=== PATIENT | male | born 1950 | race Caucasian/White ===

== ENCOUNTER 2019-07-29 11:32 | Outpatient (CLI) | payer MEDICARE, SELFPAY ==
--- NOTE | ~2019-07-29 | XR_ITS ---
XR foot LT min 3V DATE: 07/29/2019 12:04 INDICATION: Left first toe pain, swelling, redness TECHNIQUE: 4 views COMPARISON: None FINDINGS: There is localized punched-out erosion at the medial base of the proximal phalanx of the fi rst digit; consider gout. No fracture, dislocation, periosteal reaction or bone destruction is noted otherwise. Mild plantar calcaneal enthesopathy. Mild arterial calcification. IMPRESSION: Focal punched-out erosion at the medial base of proximal phalanx of first digit; consider gout Plantar calcaneal enthesopathy Reviewed, dictated and finalized at location A.
== END 2019-07-29 11:33 | disposition home or self-care (01) ==
PROVIDERS: PCP Family Medicine; Visit Provider Family Medicine
DX: M77.32 Calcaneal spur, left foot (principal); M79.89 Other specified soft tissue disorders
CPT/HCPCS: 73630

== ENCOUNTER 2019-07-30 09:34 | Outpatient (CLI) | payer MEDICARE, SELFPAY ==
[2019-07-30 10:26] LABS: Hematocrit 55.5 % (42.0-52.0); Hemoglobin 18.8 g/dL (14.0-18.0); Mean Corpuscular HGB Conc 33.9 g/dl (32-36); Mean Corpuscular Hemoglobin 31.4 pg (26-34); Mean Corpuscular Volume 92.7 fl (80-100); Mean Platelet Volume 9.8 fl (7.4-10.4); Platelet Count Result 274 k/mm3 (150-375); Red Blood Count 5.99 M/mm3 (4.6-6.20); Red Cell Distribution Width 13.3 % (11.5-14.5); White Blood Count 8.7 K/mm3 (4.5-10.0)
[2019-07-30 10:33] LABS: Hemoglobin A1C 6.2 % (<5.7)
[2019-07-30 10:34] LABS: Blood Urea Nitrogen 21 mg/dL (9-20); Calcium 9.5 mg/dL (8.4-10.2); Carbon Dioxide 27 mmol/L (22-30); Chloride 100 mmol/L (98-107); Cholesterol 140 mg/dL (0-200); Estimated Glomerular Filt Rate 51; Glucose 129 mg/dL (75-110); HDL Direct 50 mg/dL; Potassium 4.7 mmol/L (3.4-5.0); Sodium 135 mmol/L (137-145); Triglycerides 66 mg/dL (<150); Uric Acid 7.4 mg/dL (3.5-8.5)
[2019-07-30 10:45] LABS: LDL Cholesterol Direct 64 mg/dL
[2019-07-30 11:05] LABS: Prostate Specific Antigen 3.8 ng/mL (< OR = 4.0)
== END 2019-07-30 09:35 | disposition home or self-care (01) ==
PROVIDERS: PCP Family Medicine; Visit Provider Family Medicine
DX: R73.9 Hyperglycemia, unspecified (principal); M10.9 Gout, unspecified; Z12.5 Encounter for screening for malignant neoplasm of prostate; I10 Essential (primary) hypertension
CPT/HCPCS: 36415; 80048; 80061; 83036; 84153; 84550; 85027; G0103

== ENCOUNTER 2020-07-17 21:34 | Emergency (ER) | payer MEDICARE, SELFPAY ==
--- NOTE | ~2020-07-17 | CT_ITS ---
EXAMINATION: CT abdomen pelvis wo con EXAM DATE: 07/18/2020 02:26 INDICATION: Left flank pain. TECHNIQUE: Spiral CT of the abdomen and pelvis was performed without contrast. Axial, coronal and sag ittal images were reviewed. The dose-length product (DLP) for this examination was 244.87 mGy-cm. T he exposure was tailored according to patient size (auto mA exposure control), and iterative reconstr uction (ASIR) was used as additional dose reduction technique. Comparison is made to prior examinatio n from 11/22/2016. FINDINGS: There is no nephrolithiasis or hydronephrosis. Mild nonspecific bilateral perinephric fat s tranding and change. There is mild to moderate prostatomegaly. The bladder is unremarkable. There i s hepatic steatosis without suspicious focal lesion identified. Spleen, adrenal glands, pancreas are unremarkable. Gallbladder is unremarkable. No biliary obstruction. There is no retroperitoneal or pelvic lymphadenopathy. There is mild scattered arteriosclerotic disease. Small umbilical fat-conta ining hernia. The appendix is normal. The stomach and small bowel are unremarkable. There is expected amount of c olonic stool. No free intraperitoneal gas. The heart is normal in size. There are no pericardial or pleural effusions. The lung bases are unremarkable. There are no osteoblastic or osteolytic les ions identified. IMPRESSION: 1. No nephrolithiasis, hydronephrosis or acute intra-abdominal findings. 2. Mild prostatomegaly. 3. Hepatic steatosis. Reviewed, dictated and finalized at location A.
[2020-07-17 22:09] VITALS: BP 140/97; PULSE 118; RESP 20; TEMP 36.3; O2SAT 97
[2020-07-17 23:18] LABS: Add Urine Microscopic? YES; Appearance Urine Cloudy (Clear); Bilirubin Urine Negative (Negative); Blood Urine Negative (Negative); Color Urine Yellow (Yellow); Glucose Urine UA Negative (Negative); Ketones Urine Negative (Negative); Leukocyte Esterase Ur 2+ LEU/UL (Negative); Mucus Urine Rare /lpf; Nitrate Urine Negative (Negative); Protein Urine 1+ mg/dL (Negative); Specific Grav Ur 1.017 (1.001-1.035); WBC Urine >75 /hpf
[2020-07-18 00:03] LABS: Basophils Absolute Auto 0.1 K/mm3 (0.0-0.1); Basophils Percent Auto 0.3 % (0.2-1.2); Eosinophils Absolute Auto 0.1 K/mm3 (0-0.3); Eosinophils Percent Auto 0.4 % (0-4.4); Hemoglobin 18.5 g/dL (14.0-18.0); Immature Granulocyte Percent A 0.6 % (0-0.5); Lymphocytes Absolute Auto 1.52 K/mm3 (0.9-3.2); Lymphocytes Percent Auto 8.6 % (18.3-44.2); Mean Corpuscular HGB Conc 33.6 g/dl (32-36); Mean Corpuscular Hemoglobin 31.1 pg (26-34); Mean Corpuscular Volume 92.6 fl (80-100); Mean Platelet Volume 10.3 fl (7.4-10.4); Monocytes Absolute Auto 1.1 K/mm3 (0.1-0.6); Neutrophils Absolute Auto 14.8 K/mm3 (1.3-6.7); Neutrophils Percent Auto 84.1 % (45.5-73.1); Platelet Count Result 217 k/mm3 (150-375); Red Blood Count 5.94 M/mm3 (4.6-6.20); Red Cell Distribution Width 13.4 % (11.5-14.5); White Blood Count 17.6 K/mm3 (4.5-10.0)
[2020-07-18 00:14] LABS: Alanine Aminotransferase 46 U/L (4-50); Albumin Level 4.3 g/dL (3.5-5.1); Alkaline Phosphatase 81 U/L (38-126); Anion Gap 11 mmol/L (8-16); Aspartate Amino Transferase 32 U/L (17-59); Bilirubin,Total 1.5 mg/dL (0.2-1.3); Blood Urea Nitrogen 14 mg/dL (9-20); Calcium 10.4 mg/dL (8.4-10.2); Carbon Dioxide 25 mmol/L (22-30); Chloride 102 mmol/L (98-107); Estimated CRCL calculation 54 ml/min; Estimated Glomerular Filt Rate 60; Glucose 116 mg/dL (75-110); Lactic Acid Reflex 1.7 mmol/L (0.7-2.1); Potassium 4.3 mmol/L (3.4-5.0); Sodium 138 mmol/L (137-145)
[2020-07-18 01:13] VITALS: BP 134/100; PULSE 116; RESP 17; O2SAT 98
[2020-07-18 02:59] VITALS: BP 142/96; PULSE 99; RESP 19; O2SAT 99
--- NOTE | 2020-07-18 03:37 | ED.GENADULT ---
HPI - General Adult General Chief complaint: Urogenital-Male Stated complaint: urinary problems Time Seen by Provider: 07/18/20 01:57 History of Present Illness HPI narrative: Patient is a 69-year-old gentleman who presents the emergency department with chief complaint of urinary infection. Patient reports he was started on Levaquin 2 days ago and is noticed that he has had decreased urine output and difficulty starting his stream. Patient states that he has had a temperature up to 99 at home reports he has had no nausea no vomiting states that a little bit of flank discomfort on the left side. The patient states that he got concerned this evening and decided to come to the emergency department for evaluation. Related Data Home Medications Medication Instructions Recorded Confirmed febuxostat 40 mg tablet 40 mg PO DAILY 03/02/20 03/02/20 fluticasone propionate 50 1 spray INTRANASAL DAILY 03/02/20 03/02/20 mcg/actuation nasal spray,suspension indomethacin 25 mg capsule PO .prn cap 03/02/20 03/02/20 pantoprazole 40 mg tablet,delayed 40 mg PO DAILY tablet 03/02/20 03/02/20 release Allergies Allergy/AdvReac Type Severity Reaction Status Date / Time Penicillins Allergy Intermediate NAUSEA & Verified 07/18/20 01:10 RASH allopurinol Allergy Swelling Verified 07/18/20 01:10 Review of Systems Review of Systems: Narrative: A 10 system review of systems was completed on the patient and is negative except for what is stated in the HPI. Nursing and ancillary documentation was reviewed. PMFSH Social History Social History Smoking status: Former smoker (40 yrs ago) Exam Narrative: Exam Narrative: GENERAL: Well-appearing, well-nourished, and in no acute distress. HEAD: Normocephalic, atraumatic. EYES: PERRLA and EOMI. ENT: Nares clear, no rhinorrhea or epistaxis. Mucous membranes moist. NECK: Supple. CHEST: Clear to auscultation. No respiratory distress. HEART: Regular rate and rhythm. No murmur heard. Normal peripheral pulses. ABDOMEN: Soft, nontender, nondistended, normal active bowel sounds. EXTREMITIES: Normal range of motion. No edema. SKIN: Warm, dry, no rash. NEURO: No focal deficits. Alert and oriented x3. PSYCH: Normal mood and affect. Course Course Emergency Course: Patient is currently on his second day of Levaquin. He still does have evidence of urinary tract infection although does not show signs of severe sepsis he does have an elevated white blood cell count at 17,000. But currently shows no fever no hypotension negative lactate CT scan shows no acute findings. Since the patient has only been on the antibiotics for 2 days a urine culture was sent today to obtain sensitivities. Patient was instructed to continue the Levaquin if he starts having high fevers nausea vomiting inability to void the patient should return to the emergency department. Vital Signs Vital signs: Vital Signs Temperature 36.3 C L 07/17/20 22:09 Pulse Rate 118 H 07/17/20 22:09 Respiratory Rate 20 07/17/20 22:09 Blood Pressure 140/97 H 07/17/20 22:09 Pulse Oximetry 97 07/17/20 22:09 Temperature 36.3 C L 07/17/20 22:09 Pulse Rate 99 07/18/20 02:59 Respiratory Rate 19 07/18/20 02:59 Blood Pressure 142/96 H 07/18/20 02:59 Pulse Oximetry 99 07/18/20 02:59 Medical Decision Making Vital Signs Vital Signs: Vital Signs Temperature 36.3 C L 07/17/20 22:09 Pulse Rate 118 H 07/17/20 22:09 Respiratory Rate 20 07/17/20 22:09 Blood Pressure 140/97 H 07/17/20 22:09 Pulse Oximetry 97 07/17/20 22:09 Temperature 36.3 C L 07/17/20 22:09 Pulse Rate 99 07/18/20 02:59 Respiratory Rate 19 07/18/20 02:59 Blood Pressure 142/96 H 07/18/20 02:59 Pulse Oximetry 99 07/18/20 02:59 Lab Data Result diagrams: 07/17/20 23:52 07/17/20 23:52 Labs: Lab Results 07/17/20 07/17/20
[2020-07-18 03:58] VITALS: BP 119/99; PULSE 107; RESP 20; O2SAT 98
== END 2020-07-18 03:58 | disposition home or self-care (01) ==
PROVIDERS: Emergency Provider Emergency Medicine; PCP Internal Medicine
DX: N39.0 Urinary tract infection, site not specified (principal); Z87.891 Personal history of nicotine dependence
CPT/HCPCS: 36415; 74176; 80053; 81001; 83605; 85025; 87040; 87077; 87086; 99284

== ENCOUNTER 2020-09-29 02:41 | Emergency (ER) | payer MEDICARE, SELFPAY ==
--- NOTE | ~2020-09-29 | US_ITS ---
EXAMINATION: US abdomen limited EXAM DATE: 09/29/2020 07:47 INDICATION: Right upper quadrant pain. TECHNIQUE: Multiple grayscale and Doppler images of the abdomen right upper quadrant were obtained (b y a technologist who performed the scan) and subsequently reviewed. Correlation is made to CT abdomen earlier same date. FINDINGS: The pancreatic head and body are normal in appearance. The pancreatic tail is not visualized. There is echogenic liver parenchyma, hepatic steatosis. There are no focal liver lesions identified. Th ere is no evidence of intrahepatic biliary duct dilation. Portal venous flow was seen in the hepatop edal, normal direction and has normal Doppler waveform. No right-sided hydronephrosis. Common bile duct measures 6 mm, which is normal. The gallbladder wall is normal in thickness, with mo derate amount of distention. No sonographic evidence of pericholecystic fluid. There is no cholelit hiases. Technologist performing exam reports patient did not demonstrate sonographic Sears's sign. Please note that this sign is less reliable in patients who have received pain medication. IMPRESSION: 1. Moderately distended but otherwise unremarkable gallbladder. 2. Hepatic steatosis. Reviewed, dictated and finalized at location A.
--- NOTE | ~2020-09-29 | CT_ITS ---
EXAMINATION: CT abdomen pelvis w con EXAM DATE: 09/29/2020 04:44 INDICATION: Epigastric pain. TECHNIQUE: Spiral CT of the abdomen and pelvis was performed following intravenous injection of 100 m L Omnipaque 350. Axial, coronal and sagittal images of the abdomen and pelvis were reviewed. The do se-length product (DLP) for this examination was 522.88 mGy-cm. The exposure was tailored according to patient size (auto mA exposure control), and iterative reconstruction (ASIR) was used as additiona l dose reduction technique. Comparison is made to prior examination from 07/18/2020. FINDINGS: There is hepatic steatosis without suspicious focal lesion identified. Spleen, adrenal glan ds, pancreas are unremarkable. Gallbladder is moderately distended. No calcified cholelithiasis. Po rtal and splenic veins are patent. Kidneys enhance symmetrically. There is no hydronephrosis. Ther e is mild prostatomegaly. The bladder is unremarkable. There is no retroperitoneal or pelvic lympha denopathy. Small umbilical fat-containing hernia. There are no findings to suggest appendicitis. The stomach and small bowel are unremarkable. There is expected amount of colonic stool. No free intraperitoneal gas. A few scattered colonic diverticu la. The heart is normal in size. There are no pericardial or pleural effusions. Dependent basilar a telectasis. There are no osteoblastic or osteolytic lesions identified. IMPRESSION: 1. Moderately distended but otherwise unremarkable gallbladder. 2. Small umbilical hernia. 3. Hepatic steatosis. Reviewed, dictated and finalized at location A.
[2020-09-29 02:42] VITALS: BP 157/93; PULSE 98; RESP 16; TEMP 36.3; O2SAT 100
[2020-09-29 03:05] LABS: Basophils Absolute Auto 0.1 K/mm3 (0.0-0.1); Basophils Percent Auto 0.5 % (0.2-1.2); Eosinophils Percent Auto 0.2 % (0-4.4); Hematocrit 54.1 % (42.0-52.0); Hemoglobin 18.1 g/dL (14.0-18.0); Immature Granulocyte Absolute 0.06 K/mm3 (0.00-0.031); Immature Granulocyte Percent A 0.5 % (0-0.5); Mean Corpuscular HGB Conc 33.5 g/dl (32-36); Mean Corpuscular Volume 92.6 fl (80-100); Mean Platelet Volume 9.9 fl (7.4-10.4); Monocytes Absolute Auto 0.6 K/mm3 (0.1-0.6); Monocytes Percent Auto 4.5 % (2.6-8.5); Neutrophils Absolute Auto 10.6 K/mm3 (1.3-6.7); Neutrophils Percent Auto 81.3 % (45.5-73.1); Platelet Count Result 291 k/mm3 (150-375); Red Blood Count 5.84 M/mm3 (4.6-6.20); Red Cell Distribution Width 13.3 % (11.5-14.5); White Blood Count 13.1 K/mm3 (4.5-10.0)
[2020-09-29] MEDS: ONDANSETRON INJ 4 MG/2 ML VIAL IV PUSH ×2 (03:22→08:19)
[2020-09-29] MEDS: LACTATED RINGERS 1,000 ML 999 ML IV CONT (03:22)
--- NOTE | 2020-09-29 03:27 | ECG_ITS ---
Measurements Intervals [place] Rate: 83 P: 49 WA: 151 QRS: 3 QRSD: 92 T: 26 QT: 428 QTc: 504 Interpretive Statements SINUS RHYTHM WITH SINUS ARRHYTHMIA INCOMPLETE RIGHT BUNDLE BRANCH BLOCK PROLONGED QT INTERVAL ABNORMAL ECG Electronically Signed On 09-29-2020 6:54:25 CDT by Marc Payne D.O.
--- NOTE | 2020-09-29 03:28 | ED.ABDPAIN ---
HPI - Abdominal Pain General Chief Complaint: Nausea/Vomiting/Diarrhea <Rodriguez López MD - Last Filed: 09/29/20 06:49> Stated Complaint: n/v epigastric pain <Rodriguez López MD - Last Filed: 09/29/20 06:49> Time Seen by Provider: 09/29/20 03:20 <Rodriguez López MD - Last Filed: 09/29/20 06:49> Source: patient <Rodriguez López MD - Last Filed: 09/29/20 06:49> Mode of arrival: ambulatory <Rodriguez López MD - Last Filed: 09/29/20 06:49> Limitations: no limitations <Rodriguez López MD - Last Filed: 09/29/20 06:49> History of Present Illness HPI narrative: Patient is a 69-year-old male complaining of epigastric pain, 6 out of 10, nonradiating accompanied by nausea and vomiting that started last night. Patient denies any chest pain, shortness of breath, diarrhea, fever, chills or urinary symptoms. <Rodriguez López MD - Last Filed: 09/29/20 06:49> Related Data Home Medications: Home Medications Medication Instructions Recorded Confirmed febuxostat 40 mg tablet 40 mg PO DAILY 03/02/20 09/07/20 fluticasone propionate 50 1 spray INTRANASAL DAILY 03/02/20 09/07/20 mcg/actuation nasal spray,suspension indomethacin 25 mg capsule PO .prn cap 03/02/20 09/07/20 pantoprazole 40 mg tablet,delayed 40 mg PO DAILY tablet 03/02/20 09/07/20 release <Rodriguez López MD - Last Filed: 09/29/20 06:49> Allergies/Adverse Reactions: Allergies Allergy/AdvReac Type Severity Reaction Status Date / Time Penicillins Allergy Intermediate NAUSEA & Verified 09/29/20 03:21 RASH allopurinol Allergy Swelling Verified 09/29/20 03:21 <Rodriguez López MD - Last Filed: 09/29/20 06:49> Review of Systems Review of Systems: All systems reviewed & are unremarkable except as noted in HPI and below <Rodriguez López MD - Last Filed: 09/29/20 06:49> Constitutional: Constitutional: Denies body ache(s), Denies chills, Denies excessive sweating, Denies fatigue, Denies fever(s), Denies headache(s), Denies lethargy, Denies malaise, Denies weakness and Denies weight loss <Rodriguez López MD - Last Filed: 09/29/20 06:49> Eyes: Eyes: Denies blurry vision, Denies change in vision and Denies loss of vision <Rodriguez López MD - Last Filed: 09/29/20 06:49> ENT: Denies dizziness, Denies ear discharge, Denies headache(s), Denies lip swelling, Denies epistaxis, Denies nasal congestion, Denies neck pain, Denies throat swelling and Denies tongue swelling <Rodriguez López MD - Last Filed: 09/29/20 06:49> Cardiovascular: Cardiovascular: Denies chest pain, Denies chest pain at rest, Denies chest pain with activity, Denies diaphoresis, Denies rapid heart rate, Denies edema, Denies irregular heart rhythm, Denies lightheadedness, Denies palpitations, Denies dyspnea and Denies dyspnea on exertion <Rodriguez López MD - Last Filed: 09/29/20 06:49> Respiratory: Respiratory: Denies chest congestion, Denies cough, Denies hemoptysis, Denies dyspnea and Denies dyspnea on exertion <Rodriguez López MD - Last Filed: 09/29/20 06:49> Gastrointestinal: Gastrointestinal: Denies melena, Denies hematochezia, Denies diarrhea, Denies nausea, Denies vomiting and Denies hematemesis <Rodriguez López MD - Last Filed: 09/29/20 06:49> Musculoskeletal: Musculoskeletal: Denies abnormal gait, Denies deformity, Denies joint swelling, Denies limited range of motion, Denies neck pain and Denies numbness <Rodriguez López MD - Last Filed: 09/29/20 06:49> Neurologic: Denies Abnormal speech present, Denies abnormal gait, Denies confusion, Denies dizziness, Denies headache(s), Denies focal weakness, Denies loss of vision, Denies numbness, Denies Other visual disturbances, Denies Sensory deficit (Neuro) and Denies weakness <Rodriguez López MD - Last Filed: 09/29/20 06:49> Psychiatric: Psychiatric: Denies confusion, Denies depression, Denies auditory hallucinations, Denies homicidal ideation
[2020-09-29 03:43] LABS: Alanine Aminotransferase 32 U/L (4-50); Albumin Level 4.4 g/dL (3.5-5.1); Alkaline Phosphatase 68 U/L (38-126); Anion Gap 12 mmol/L (8-16); Aspartate Amino Transferase 26 U/L (17-59); Bilirubin,Total 1.4 mg/dL (0.2-1.3); Blood Urea Nitrogen 20 mg/dL (9-20); Calcium 9.9 mg/dL (8.4-10.2); Carbon Dioxide 24 mmol/L (22-30); Chloride 103 mmol/L (98-107); Estimated CRCL calculation 50 ml/min; Estimated Glomerular Filt Rate 55; Glucose 176 mg/dL (65-110); Lipase 81 U/L (23-300); Potassium 3.7 mmol/L (3.4-5.0); Sodium 139 mmol/L (137-145)
[2020-09-29] MEDS: PROMETHAZINE HCL 25 MG/ML AMPUL 12.5 MG IV PUSH (04:05)
[2020-09-29] MEDS: HYDROmorphone HCL INJ (*CRX) 1 MG/ML SYR 0.5 MG IV PUSH ×2 (04:05→05:52)
--- NOTE | 2020-09-29 04:13 | PC.NURSE ---
Pt to CT scan via stretcher at this time.
[2020-09-29 04:24] VITALS: BP 151/93; PULSE 90; RESP 18; O2SAT 98
[2020-09-29] MEDS: PANTOPRAZOLE SODIUM IV 40 MG VIAL IV PUSH (04:25)
[2020-09-29 05:09] VITALS: BP 151/74; PULSE 69; RESP 19; O2SAT 99
[2020-09-29 05:20] LABS: Add Urine Microscopic? YES; Appearance Urine Clear (Clear); Bilirubin Urine Negative (Negative); Blood Urine Negative (Negative); Color Urine Yellow (Yellow); Glucose Urine UA 1+ mg/dL (Negative); Ketones Urine 1+ mg/dL (Negative); Leukocyte Esterase Ur Negative LEU/UL (Negative); Nitrate Urine Negative (Negative); Protein Urine Negative (Negative); WBC Urine 0-3 /hpf
[2020-09-29 05:52] VITALS: BP 152/95; PULSE 90; RESP 18; O2SAT 98
[2020-09-29 07:16] VITALS: BP 139/87; PULSE 89; RESP 18; O2SAT 96
[2020-09-29 10:10] VITALS: BP 144/88; PULSE 90; RESP 16; O2SAT 98
== END 2020-09-29 10:10 | disposition home or self-care (01) ==
PROVIDERS: Emergency Provider Emergency Medicine; PCP Internal Medicine
DX: R10.13 Epigastric pain (principal); R11.2 Nausea with vomiting, unspecified; I10 Essential (primary) hypertension; Z87.891 Personal history of nicotine dependence
CPT/HCPCS: 36415; 74177; 76705; 80053; 81001; 83690; 85025; 93005; 96361; 96374; 96375; 96376; 99284; C9113; J1170; J2405; J2550; J7120; Q9967

== ENCOUNTER 2020-09-30 12:41 | Inpatient (IN) | payer MEDICARE, SELFPAY ==
[2020-09-30] VITALS (13 sets, daily range): BP systolic 121–160; BP diastolic 77–101; PULSE 85–130; RESP 16–22; TEMP 36.6–38.3; O2SAT 94–100; BMI 25.7
--- NOTE | ~2020-09-30 | CT_ITS ---
EXAMINATION: CT abdomen pelvis w con DATE: 09/30/2020 14:03 INDICATION: Right upper quadrant pain, nausea and vomiting TECHNIQUE: Computed tomography (CT) of the abdomen and pelvis was performed with 100 mL Omnipaque-350 intravenous contrast. Automated exposure control and iterative reconstruction technique were employe d. The dose-length product was 647.05 mGy-cm. COMPARISON: 09/29/2020 FINDINGS: Mild atelectasis at the bilateral lung bases. Heart size is normal. No pericardial or pleural effusio n. Diffuse hepatic steatosis with focal sparing along the gallbladder fossa. New inflammatory strandi ng around the gallbladder which remains mildly distended measuring 4.3 cm in maximal diameter. Alina us small foci of gas tracking within the wall of the gallbladder along with a few tiny foci of gas wi thin the fat near the neck of the gallbladder. Findings are concerning for acute emphysematous cholec ystitis. No intra or extrahepatic biliary ductal dilation. Spleen, bilateral adrenal glands and kidne ys are normal. Moderate fatty atrophy of the pancreas. Bowels including the appendix are normal. Blad lora is normal. No abscess or free intraperitoneal gas. No pathologically enlarged abdominal or pelvic lymphadenopathy. Very small fat-containing umbilical hernia. Severe lower lumbar spondylosis. IMPRESSION: 1. Acute emphysematous cholecystitis. Dr. Arredondo discussed these findings with Dr. Patel at 2:08 PM. Reviewed, dictated and finalized at location B. IMPRESSION: 1. Acute emphysematous cholecystitis. Dr. Arredondo discussed these findings wit h Dr. Patel at 2:08 PM.
[2020-09-30 13:15] LABS: Hematocrit 55.9 % (42.0-52.0); Hemoglobin 19.2 g/dL (14.0-18.0); Mean Corpuscular HGB Conc 34.3 g/dl (32-36); Mean Corpuscular Volume 90.3 fl (80-100); Mean Platelet Volume 10.2 fl (7.4-10.4); Platelet Count Result 285 k/mm3 (150-375); Red Blood Count 6.19 M/mm3 (4.6-6.20); Red Cell Distribution Width 13.3 % (11.5-14.5); White Blood Count 27.8 K/mm3 (4.5-10.0)
[2020-09-30 13:33] LABS: Alanine Aminotransferase 48 U/L (4-50); Albumin Level 4.7 g/dL (3.5-5.1); Alkaline Phosphatase 74 U/L (38-126); Anion Gap 10 mmol/L (8-16); Aspartate Amino Transferase 43 U/L (17-59); Bilirubin,Total 4.5 mg/dL (0.2-1.3); Blood Urea Nitrogen 17 mg/dL (9-20); Calcium 10.4 mg/dL (8.4-10.2); Carbon Dioxide 28 mmol/L (22-30); Chloride 96 mmol/L (98-107); Estimated CRCL calculation 54 ml/min; Estimated Glomerular Filt Rate 60; Glucose 156 mg/dL (65-110); Lipase 16 U/L (23-300); Potassium 4.2 mmol/L (3.4-5.0); Sodium 134 mmol/L (137-145)
--- NOTE | 2020-09-30 13:40 | ED.ABDPAIN ---
HPI - Abdominal Pain General Chief Complaint: Abdominal Pain <SIVA Abarca Last Filed: 09/30/20 14:50> Stated Complaint: Abd pain, vomiting <SIVA Abarca Last Filed: 09/30/20 14:50> Time Seen by Provider: 09/30/20 13:03 <SIVA Abarca Last Filed: 09/30/20 14:50> Source: patient <SIVA Abarca Last Filed: 09/30/20 14:50> Mode of arrival: ambulatory <SIVA Abarca Last Filed: 09/30/20 14:50> Limitations: no limitations <SIVA Abarca Last Filed: 09/30/20 14:50> History of Present Illness HPI narrative: This is a 61-year-old male that presents to the emergency department for right upper quadrant pain present x2 days. He was evaluated in the emergency department for this at onset of symptoms. He was told that his gallbladder was distended, but was able to be discharged with outpatient follow-up. He presents again today as his pain is worsening and he is continuing to have nausea and vomiting. Does report that he has had similar episodes of pain in the past and especially after eating fatty foods. Denies fever, dysuria, or diarrhea. <Adriana De La Rosa PA-C - Last Filed: 09/30/20 14:50> Related Data Home Medications: Home Medications Medication Instructions Recorded Confirmed febuxostat 40 mg tablet 40 mg PO DAILY 03/02/20 09/07/20 fluticasone propionate 50 1 spray INTRANASAL DAILY 03/02/20 09/07/20 mcg/actuation nasal spray,suspension indomethacin 25 mg capsule PO .prn cap 03/02/20 09/07/20 pantoprazole 40 mg tablet,delayed 40 mg PO DAILY tablet 03/02/20 09/07/20 release <SIVA Abarca Last Filed: 09/30/20 14:50> Allergies/Adverse Reactions: Allergies Allergy/AdvReac Type Severity Reaction Status Date / Time Penicillins Allergy Intermediate NAUSEA & Verified 09/30/20 13:47 RASH allopurinol Allergy Swelling Verified 09/30/20 13:47 <Adriana De La Rosa PA-C - Last Filed: 09/30/20 14:50> Review of Systems Review of Systems: CONSTITUTIONAL: Denies fever GASTROINTESTINAL: Reports abdominal pain, nausea, vomiting GENITOURINARY: Denies dysuria <Adriana De La Rosa PA-C - Last Filed: 09/30/20 14:50> All systems reviewed & are unremarkable except as noted in HPI and below <Adriana De La Rosa PA-C - Last Filed: 09/30/20 14:50> PMFSH Past Medical History Medical History: Medical History (Updated 09/30/20 @ 14:47 by Adriana De La Rosa PA-C) Chronic GERD Essential hypertension Gout Prediabetes <Adriana De La Rosa PA-C - Last Filed: 09/30/20 14:50> Social History Social History: Social History Smoking status: Former smoker Second hand tobacco smoke exposure: Yes Alcohol intake: current Drinks per week: 3 <Adriana De La Rosa PA-C - Last Filed: 09/30/20 14:50> Exam Narrative: GENERAL: Well-appearing, well-nourished, and in no acute distress. HEAD: Normocephalic, atraumatic. EYES: EOMI. CHEST: Clear to auscultation. No respiratory distress. No wheezes rales or rhonchi HEART: Regular rate and rhythm. No murmur heard. Normal peripheral pulses. ABDOMEN: Soft, mildly distended, normal active bowel sounds. Tender to palpation in the right upper quadrant, without guarding EXTREMITIES: Normal range of motion. No edema. SKIN: Warm, dry, no rash. NEURO: No focal deficits. Alert and oriented x3. PSYCH: Normal mood and affect <Adriana De La Rosa PA-C - Last Filed: 09/30/20 14:50> Course ESTHETICIAN FACIALIST/PA Physician Supervision For this encounter, I have reviewed the PA documentation, treatment plan and medical decision making: And I have had [id number] time with the patient. On exam the patient is tender palpation right upper quadrant right lower quadrant no tenderness left quadrant left lower quadrant no rebound or guarding : Discussed with Dr. Lundy presentation work-up at this time will call OR to likely take patient to surg
[2020-09-30] MEDS: SODIUM CHLORIDE 0.9% IV 1,000 ML 999 ML IV CONT (13:48)
[2020-09-30] MEDS: MORPHINE SULFATE (*CRX) 2 MG/ML INJ IV PUSH (13:48)
[2020-09-30] MEDS: ONDANSETRON INJ 4 MG/2 ML VIAL IV PUSH (13:48)
--- NOTE | 2020-09-30 14:03 | PC.NURSE ---
Pt to CT.
[2020-09-30 14:04] LABS: Add Urine Microscopic? YES; Appearance Urine Clear (Clear); Bilirubin Urine Negative (Negative); Blood Urine 1+ (Negative); Color Urine Amber (Yellow); Glucose Urine UA 1+ mg/dL (Negative); Ketones Urine Trace mg/dL (Negative); Leukocyte Esterase Ur Negative LEU/UL (Negative); Nitrate Urine Negative (Negative); Protein Urine 2+ mg/dL (Negative)
[2020-09-30 14:17] LABS: Specific Grav Ur 1.032 (1.001-1.035)
--- NOTE | 2020-09-30 15:12 | WPDANESEPPF ---
Anes - Initial Pre Proc Eval Procedure: Operation Date: 09/30/20 16:30 Proposed Procedures p Laparoscopic Cholecystectomy - Justin Lundy MD Date/Time: 09/30/20 15:12 Pre Op Diagnosis: emphysematous cholecystitis Patient Data Age: 69 Gender: M Height: 1.78 m Weight: 77 kg Last Vital Signs Temp 36.6 C 09/30/20 12:45 Pulse 130 H 09/30/20 12:45 Resp 16 09/30/20 12:45 BP 141/101 H 09/30/20 12:45 Pulse Ox 96 09/30/20 12:45 Allergies Allergy/AdvReac Type Severity Reaction Status Date / Time Penicillins Allergy Intermediate NAUSEA & Verified 09/30/20 13:47 RASH levofloxacin [From Levaquin] Allergy Unknown Swelling Verified 09/30/20 15:54 allopurinol Allergy Swelling Verified 09/30/20 13:47 Home Medications Medication Instructions Recorded Confirmed Type febuxostat 40 mg tablet 40 mg PO DAILY 03/02/20 09/07/20 History fluticasone propionate 50 1 spray INTRANASAL DAILY 03/02/20 09/07/20 History mcg/actuation nasal spray,suspension indomethacin 25 mg capsule PO .prn cap 03/02/20 09/07/20 History pantoprazole 40 mg tablet,delayed 40 mg PO DAILY tablet 03/02/20 09/07/20 History release trazodone 150 mg tablet 150 mg PO DAILY #90 tablet 07/29/20 09/07/20 Rx lisinopril 20 mg tablet 20 mg PO DAILY #90 tablet 08/12/20 09/07/20 Rx dicyclomine 10 mg PO TID PRN #10 cap 09/29/20 Rx ondansetron 4 mg PO Q6H PRN #14 tablet 09/29/20 Rx Laboratory Tests 09/30/20 09/30/20 09/30/20 13:06 13:06 13:39 WBC 27.8 K/mm3 H K/mm3 (4.5-10.0) RBC 6.19 M/mm3 M/mm3 (4.6-6.20) Hgb 19.2 g/dL H g/dL (14.0-18.0) Hct 55.9 % H % (42.0-52.0) MCV 90.3 fl fl (80-100) MCH 31.0 pg pg (26-34) MCHC 34.3 g/dl g/dl (32-36) RDW 13.3 % % (11.5-14.5) Plt Count 285 k/mm3 k/mm3 (150-375) MPV 10.2 fl fl (7.4-10.4) Immature Gran % (Auto) Not Reportable Neut % (Auto) Not Reportable Lymph % (Auto) Not Reportable [place] % (Auto) Not Reportable Eos % (Auto) Not Reportable Baso % (Auto) Not Reportable Lymph # (Auto) Not Reportable [place] # (Auto) Not Reportable Eos # (Auto) Not Reportable Baso # (Auto) Not Reportable Abs Immat Gran (auto) Not Reportable Absolute Neuts (auto) Not Reportable Absolute Nucleated RBC Not Reportable Nucleated RBC % Not Reportable Platelet Estimate Pending Sodium 134 mmol/L L mmol/L (137-145) Potassium 4.2 mmol/L mmol/L (3.4-5.0) Chloride 96 mmol/L L mmol/L (98-107) Carbon Dioxide 28 mmol/L mmol/L (22-30) Anion Gap 10 mmol/L mmol/L (8-16) BUN 17 mg/dL mg/dL (9-20) Creatinine 1.20 mg/dL mg/dL (0.7-1.3) Estim Creat Clear Calc 54 ml/min ml/min Estimated GFR 60 (59 - ) Glucose 156 mg/dL H mg/dL (65-110) Calcium 10.4 mg/dL H mg/dL (8.4-10.2) Total Bilirubin 4.5 mg/dL H mg/dL (0.2-1.3) AST 43 U/L U/L (17-59) ALT 48 U/L U/L (4-50) Alkaline Phosphatase 74 U/L U/L (38-126) Total Protein 8.0 g/dL g/dL (6.3-8.2) Albumin 4.7 g/dL g/dL (3.5-5.1) Lipase 16 U/L L U/L (23-300) Urine Color Ava (Yellow) Urine Appearance Clear (Clear) Urine pH 5.0 (5.0-9.0) Ur Specific [place] 1.032 (1.001-1.035) Urine Protein 2+ mg/dL H mg/dL (Negative) Urine Glucose (UA) 1+ mg/dL H mg/dL (Negative) Urine Ketones Trace mg/dL mg/dL (Negative) Ur Blood (Man) 1+ H (Negative) Urine Nitrate Negative (Negative) Urine Bilirubin Negative (Negative) Urine Urobilinogen 4.0 mg/dL H mg/dL (<2.0) Leuko
[2020-09-30] MEDS: metroNIDAZOLE 500 MG/ISO 100ML 500 MG/100 ML BAG 100 MG IVPB ×2 (15:20→20:55)
--- NOTE | 2020-09-30 15:24 | PC.NURSE ---
Spouse now believes pt had reaction to levaquin in the past and requested to stop infusion. OR made aware.
[2020-09-30 15:36] LABS: Lactic Acid Reflex 1.9 mmol/L (0.7-2.1)
[2020-09-30] MEDS: LACTATED RINGERS 1,000 ML 30 ML IV CONT ×2 (15:45→18:09)
[2020-09-30 15:50] LABS: Lymphocytes Absolute Manual 0.55 K/mm3 (1.1-4.5); Monocytes Absolute Manual 0.83 K/mm3 (0.1-0.90); Monocytes Percent Manual 3 % (3-9); Neutrophils Percent Manual 95 % (46-73); Total Cells Counted 100
[2020-09-30 15:51] LABS: Platelet Estimate Adequate (Adequate)
--- NOTE | 2020-09-30 16:11 | WPDHPUPDATE1 ---
History and Physical Update Update Date/Time: 09/30/20 16:11 History and Physical has been reviewed, including an updated exam of the patient. There are NO changes in the patient's condition. Risks, benefits, and alternatives have been discussed and questions answered. Patient agrees to proceed with procedure.
--- NOTE | 2020-09-30 16:11 | PM.IMHP ---
H&P: HPI History of Present Illness Date/Time: 09/30/20 16:11 Chief Complaint: Abdominal pain Narrative: The patient is a 69-year-old man who has been having abdominal pain for the last 3 days. The pain is primarily in the right upper quadrant and epigastrium. It is associated with nausea and vomiting This got worse yesterday and he went to the emergency room here last night. Although he had a 13,000 white count, his workup was unremarkable other than a distended gallbladder. There were no stones in the gallbladder. He had both CT of the abdomen and pelvis as well as a right upper quadrant ultrasound. He was discharge with plans for outpatient follow-up as he was feeling better in the emergency room. Unfortunately this did not last and in fact today he got considerably worse with severe pain nausea and vomiting. He came back to the emergency room. His white count on this occasion was 27,800. CT scan of the abdomen and pelvis was repeated and showed emphysematous acute cholecystitis with several foci of air in the wall of the gallbladder new from the imaging of yesterday. He felt feverish at home and most recent temperature here is 38.3. He had tachycardia in the 110s. Blood pressure is slightly elevated as well. He does have hyperbilirubinemia today with bilirubin of 4.5. He is taken to surgery now for laparoscopic cholecystectomy for acute emphysematous cholecystitis. Review of Systems Review of Systems: All systems reviewed & are unremarkable except as noted in HPI and below Constitutional: Constitutional: Reports as per HPI, Reports chills, Reports fever(s) and Reports poor appetite Cardiovascular: Cardiovascular: Denies chest pain, Denies diaphoresis, Denies dyspnea and Denies paroxysmal nocturnal dyspnea Respiratory: Respiratory: Denies chest congestion, Denies cough and Denies dyspnea Integumentary/Breasts: Skin/Breast: Denies lesions and Denies rash PMFSH Past Medical History Medical History (Updated 09/30/20 @ 16:41 by Justin Lundy MD) Acute emphysematous cholecystitis Chronic GERD Essential hypertension Gout Prediabetes Social History Social History Smoking status: Former smoker Second hand tobacco smoke exposure: Yes Alcohol intake: current Drinks per week: 3 Meds Home Medications and Allergies Home Medications Medication Instructions Recorded Confirmed Type febuxostat 40 mg tablet 40 mg PO DAILY 03/02/20 09/07/20 History fluticasone propionate 50 1 spray INTRANASAL DAILY 03/02/20 09/07/20 History mcg/actuation nasal spray,suspension indomethacin 25 mg capsule PO .prn cap 03/02/20 09/07/20 History pantoprazole 40 mg tablet,delayed 40 mg PO DAILY tablet 03/02/20 09/07/20 History release trazodone 150 mg tablet 150 mg PO DAILY #90 tablet 07/29/20 09/07/20 Rx lisinopril 20 mg tablet 20 mg PO DAILY #90 tablet 08/12/20 09/07/20 Rx dicyclomine 10 mg PO TID PRN #10 cap 09/29/20 Rx ondansetron 4 mg PO Q6H PRN #14 tablet 09/29/20 Rx Allergies Allergy/AdvReac Type Severity Reaction Status Date / Time Penicillins Allergy Intermediate NAUSEA & Verified 09/30/20 13:47 RASH levofloxacin [From Levaquin] Allergy Unknown Swelling Verified 09/30/20 15:54 allopurinol Allergy Swelling Verified 09/30/20 13:47 Vital Signs Vital Signs - 24 hr 09/30/20 12:45 09/30/20 15:18 09/30/20 15:51 Temperature 36.6 C 38.3 C H Pulse Rate 130 H 102 H 101 H Respiratory Rate 16 16 20 Blood Pressure 141/101 H 160/90 H 156/93 H Pulse Oximetry 96 100 98 Exam Const: General: cooperative, no acute distress, alert, awake, ill appearing and uncomfortable; No confusion Nutritional Appearance: average body habitus Orientation/consciousness: patient oriented x3 and No confusion HENMT: Head: normocephalic, atraumatic, no contusions and no scalp lesions Ears: external ears normal General nose exam: Normal external nose present Face and
[2020-09-30] MEDS: GENTAMICIN 80MG/SOD CHL 50 ML 80 MG/50 ML BAG 100 MG IVPB (16:21)
[2020-09-30] MEDS: BUPIVACAINE/EPINEPHRINE 0.25% 50 ML VIAL INFILTRATE (17:24)
--- NOTE | 2020-09-30 18:36 | W.PM.PROC2 ---
Procedure Note - Detailed Date of Procedure 09/30/20 Pre-op Diagnosis emphysematous cholecystitis Post-op Diagnosis same Procedure Performed Laparoscopic cholecystectomy Surgeon Justin Lundy MD Forepart Rounder Liza SARKAR Anesthesia general and local (0.5% Marcaine) Indications Patient presented to the emergency room with severe epigastric and right upper quadrant abdominal pain. He had a fever and white blood cell count was 27,800. CT scan showed emphysematous acute cholecystitis. He is taken to surgery emergently now for laparoscopic cholecystectomy. Findings Gallbladder was tensely distended with obvious acute inflammation and gangrenous changes. The back wall of the gallbladder was gangrenous and mushy. There was old blood in the gallbladder. I did not really notice any stones. Liver appeared normal. There was no biliary ductal dilatation. Description of Procedure Patient was taken to surgery and induced into general anesthesia. The abdomen is prepped and draped. Trocars were placed in the usual fashion using 0.5% Marcaine with epinephrine an applied Medical optical trocars. A 5 mm camera was used. The gallbladder was obviously acutely inflamed. The areas on the gallbladder that were not an angry reddish purple color were obviously gangrenous. The gallbladder was tensely distended. It could not be grasped but when trying to grasp it the garces would tear easily. Before the wall tore through full thickness, I decompressed the gallbladder with the suction. There was old blood in the gallbladder probably due to mucosal bleeding. Once the gallbladder was decompressed, it was retracted anterosuperiorly. There was severe acute inflammation throughout the gallbladder. I dissected the cystic duct and cystic artery using blunt and sharp dissection. The sharp dissection was primarily with the cautery. The cystic duct appeared gangrenous as well. It was handled gently. I dissected out the cystic artery as well. The dissection was exceedingly bloody due to the severe inflammation. There was edema as well consistent with the acute inflammation. I dissected the gallbladder off the liver at its lower 3rd. Critical view was achieved. I then securely clipped and divided the cystic duct and cystic artery. From there we continued the dissection of the gallbladder from its attachments to the liver. The upper half of the gallbladder was gangrenous and in the process of decomposing. It was dissected off the liver taking a little bit of the liver substance to try to remove the gangrenous wall of the gallbladder. Eventually the gallbladder was completely freed from the liver. It was placed in an Endo-Catch bag retrieved through the 10 11 epigastric trocar. The epigastric trocar was then replaced. The liver was retracted anterosuperiorly so that the gallbladder fossa was exposed. Repeated irrigation and suctioning as well as cautery to the gallbladder fossa was carried out. Eventually the gallbladder fossa was quite dry. I then continued the irrigation and suctioning. At least 3 L of irrigation was used and the right upper quadrant was thoroughly cleaned and suctioned. The gallbladder fossa was quite dry. There was no evidence of bleeding or bile leakage. We then passed a 19 [place] Island[place] Sergei drain through the right lower quadrant trocar up into the subhepatic space. Once in position, the trocar was removed and the drain was sutured securely to the skin with 2-0 silk. We then took 1 final look at the areas of dissection. All looked good. We evacuated CO2 and removed the trocar sleeves. The fascia at the epigastric trocar site was closed with 0 Vicryl suture. All skin wounds were closed with subcuticular running 4-0 Monocryl skin suture. The wounds were dressed with Exofin surgical adhesive. The patient was awakened and taken to recovery in good condition. Sponge and needle counts were correct x2. Estimated Blood Loss -100.0 Drains Yes (CAIT agustin
[2020-09-30] MEDS: MORPHINE SULFATE (*CRX) 4 MG/ML INJ IV PUSH (20:52)
[2020-09-30] MEDS: ENOXAPARIN 30 MG/0.3 ML SYRINGE SUB-Q (20:52)
--- NOTE | 2020-09-30 21:36 | ADMGEN ---
This patient, Robe Cordero, was admitted to Medical Room 249-01. Patient/family oriented to hospital policies and general routines including ID bracelet, bed and alarms, visiting hours, pain management, procedures, bathroom and other care routines, personal items, smoking policy, room service/diet, and visiting hours. Information on how to activate the Rapid Response Team has been discussed. Patient/Family are encouraged to report perceived risks to care and to ask questions if they do not understand what they are told or what they should do.
[2020-09-30] MEDS: LACTATED RINGERS 1,000 ML 125 ML IV CONT (22:15)
[2020-10-01] VITALS (7 sets, daily range): BP systolic 127–136; BP diastolic 73–88; PULSE 85–104; RESP 16; TEMP 36.4–37.9; O2SAT 94–97
[2020-10-01] MEDS: ACETAMINOPHEN 500 MG TABLET PO (00:07)
[2020-10-01] MEDS: FLUTICASONE PROPIONATE 0.05% NA SPR 16 GM BTL (*BKC) 1 SPRAY NASAL ×2 (01:18→08:31)
[2020-10-01] MEDS: HYDROcodone/acetaminophen (*CRX) 10-325 MG TABLET 1 TAB PO ×3 (04:58→18:38)
[2020-10-01] MEDS: metroNIDAZOLE 500 MG/ISO 100ML 500 MG/100 ML BAG 100 MG IVPB ×3 (04:59→22:22)
[2020-10-01 05:43] LABS: Hematocrit 48.1 % (42.0-52.0); Hemoglobin 16.3 g/dL (14.0-18.0); Mean Corpuscular HGB Conc 33.9 g/dl (32-36); Mean Corpuscular Hemoglobin 30.7 pg (26-34); Mean Corpuscular Volume 90.6 fl (80-100); Mean Platelet Volume 10.4 fl (7.4-10.4); Platelet Count Result 219 k/mm3 (150-375); Red Blood Count 5.31 M/mm3 (4.6-6.20); Red Cell Distribution Width 13.2 % (11.5-14.5); White Blood Count 19.1 K/mm3 (4.5-10.0)
[2020-10-01 05:51] LABS: Alanine Aminotransferase 60 U/L (4-50); Albumin Level 3.6 g/dL (3.5-5.1); Alkaline Phosphatase 55 U/L (38-126); Anion Gap 5 mmol/L (8-16); Aspartate Amino Transferase 63 U/L (17-59); Bilirubin,Total 2.6 mg/dL (0.2-1.3); Blood Urea Nitrogen 17 mg/dL (9-20); Calcium 8.7 mg/dL (8.4-10.2); Carbon Dioxide 25 mmol/L (22-30); Chloride 101 mmol/L (98-107); Estimated CRCL calculation 59 ml/min; Estimated Glomerular Filt Rate > 60; Glucose 121 mg/dL (65-110); Potassium 4.2 mmol/L (3.4-5.0); Sodium 131 mmol/L (137-145)
--- NOTE | 2020-10-01 07:11 | WPDANESPN ---
Anes - Prog Note Post-Op Date/Time: 10/01/20 07:11 Cardiovascular status: normal Respiratory status: normal Airway patency: baseline Mental status: baseline Post-Op hydration status: normal Vital Signs: Last Vital Signs Temp 98.9 F 10/01/20 06:00 Pulse 93 10/01/20 06:00 Resp 16 10/01/20 06:00 BP 136/86 10/01/20 06:00 Pulse Ox 95 10/01/20 06:00 Pain Score (VAS): 7 I/O: Intake & Output 09/30/20 09/30/20 10/01/20 15:59 23:59 07:59 Intake Total 1491 889 0777 Output Total 30 780 Balance 4292 730 3556 Laboratory Tests 10/01/20 05:22 10/01/20 05:22 09/30/20 09/30/20 09/30/20 13:06 13:06 13:39 WBC 27.8 H RBC 6.19 Hgb 19.2 H Hct 55.9 H MCV 90.3 MCH 31.0 MCHC 34.3 RDW 13.3 Plt Count 285 MPV 10.2 Immature Gran % (Auto) Not Reportable Neut % (Auto) Not Reportable Lymph % (Auto) Not Reportable [place] % (Auto) Not Reportable Eos % (Auto) Not Reportable Baso % (Auto) Not Reportable Lymph # (Auto) Not Reportable [place] # (Auto) Not Reportable Eos # (Auto) Not Reportable Baso # (Auto) Not Reportable Abs Immat Gran (auto) Not Reportable Absolute Neuts (auto) Not Reportable Absolute Nucleated RBC Not Reportable Total Counted 100 Neutrophils % (Manual) 95 H Lymphocytes % (Manual) 2.0 L Monocytes % (Manual) 3 Nucleated RBC % Not Reportable Abs Lymphs (Manual) 0.55 L Abs Monocytes (Manual) 0.83 Platelet Estimate Adequate Sodium 134 L Potassium 4.2 Chloride 96 L Carbon Dioxide 28 Anion Gap 10 BUN 17 Creatinine 1.20 Estim Creat Clear Calc 54 Estimated GFR 60 Glucose 156 H Lactic Acid Calcium 10.4 H Total Bilirubin 4.5 H AST 43 ALT 48 Alkaline Phosphatase 74 Total Protein 8.0 Albumin 4.7 Lipase 16 L Urine Color Ava Urine Appearance Clear Urine pH 5.0 Ur Specific [place] 1.032 Urine Protein 2+ H Urine Glucose (UA) 1+ H Urine Ketones Trace Ur Blood (Man) 1+ H Urine Nitrate Negative Urine Bilirubin Negative Urine Urobilinogen 4.0 H Leukocyte Esterase Rfl Negative 09/30/20 10/01/20 10/01/20 14:58 05:22 05:22 WBC 19.1 H RBC 5.31 Hgb 16.3 Hct 48.1 MCV 90.6 MCH 30.7 MCHC 33.9 RDW 13.2 Plt Count 219 MPV 10.4 Immature Gran % (Auto) Neut % (Auto) Lymph % (Auto) [place] % (Auto) Eos % (Auto) Baso % (Auto) Lymph # (Auto) [place] # (Auto) Eos # (Auto) Baso # (Auto) Abs Immat Gran (auto) Absolute Neuts (auto) Absolute Nucleated RBC Total Counted Neutrophils % (Manual) Lymphocytes % (Manual) Monocytes % (Manual) Nucleated RBC % Abs Lymphs (Manual) Abs Monocytes (Manual) Platelet Estimate Sodium 131 L Potassium 4.2 Chloride 101 Carbon Dioxide 25 Anion Gap 5 L BUN 17 Creatinine 1.10 Estim Creat Clear Calc 59 Estimated GFR > 60 Glucose 121 H Lactic Acid 1.9 Calcium 8.7 Total Bilirubin 2.6 H AST 63 H ALT 60 H Alkaline Phosphatase 55 Total Protein 7.0 Albumin 3.6 Lipase Urine Color Urine Appearance Urine pH Ur Specific [place] Urine Protein Urine Glucose (UA) Urine Ketones Ur Blood (Man) Urine Nitrate Urine Bilirubin Urine Urobilinogen Leukocyte Esterase Rfl Post-procedural complaints: none Patient Feedback: Patient satisfied with anesthetic care.
[2020-10-01] MEDS: LACTATED RINGERS 1,000 ML 125 ML IV CONT (08:27)
[2020-10-01] MEDS: PANTOPRAZOLE 40 MG TABLET PO (08:31)
[2020-10-01] MEDS: ENOXAPARIN 30 MG/0.3 ML SYRINGE SUB-Q ×2 (08:31→20:33)
[2020-10-01] MEDS: LORATADINE 5 MG TABLET PO (11:28)
[2020-10-01] MEDS: ARTIFICIAL TEARS OPHTH SOLN 15 ML BOTTLE 1 DROP EACH EYE ×2 (11:29→20:34)
--- NOTE | 2020-10-01 13:21 | PCRCNOTE ---
O2 SAT 94% ON ROOM AIR.
--- NOTE | 2020-10-01 16:30 | PM.PNGS ---
Progress Note: A&P Assessment and Plan (1) Acute emphysematous cholecystitis: Code(s): K81.0 - Acute cholecystitis Status: Acute Assessment and Plan: Doing well postop day 1. Continue IV antibiotics. If remains afebrile and tolerating oral intake, can possibly discharge tomorrow. Will ambulate today and advance diet. Continue CAIT drain for now. Subjective Subjective Date/Time Seen: 10/01/20 06:30 Post Op day: 1 Patient reports: feels better, pain is less, no flatus, no bowel movement and afebrile Exam Const: General: comfortable and no acute distress; No confusion Orientation/consciousness: patient oriented x3 and No confusion GI: Inspection: incision (All incisions dry and healing well, serosanguineous CAIT fluid) GI Palp: Yes Soft to palpation, Yes Tenderness to palpation present (GI), No Guarding due to palpation present (GI) and No Rebound tenderness present Auscultation: normal bowel sounds Neuro: General: patient oriented x3, no focal motor deficits and No confusion Extrem: General: no calf tenderness and no edema Psych: Affect: normal affect Insight: Good insight present (Psych) Judgement: Good judgement present (Psych) Objective Data Vital Signs Vital Signs: Vital Signs - 24 hr 09/30/20 18:09 09/30/20 18:25 09/30/20 18:40 Temperature 37.1 C Pulse Rate 89 85 87 Respiratory Rate 20 21 H 22 H Blood Pressure 121/82 154/99 H 144/97 H Pulse Oximetry 98 98 94 09/30/20 18:55 09/30/20 19:10 09/30/20 20:15 Temperature 37.3 C Pulse Rate 90 98 97 Respiratory Rate 18 16 16 Blood Pressure 149/98 H 148/98 H 126/77 Pulse Oximetry 100 97 97 09/30/20 20:30 09/30/20 21:00 09/30/20 21:23 Temperature 37.5 C 37.9 C H Pulse Rate 100 111 H 98 Respiratory Rate 16 17 16 Blood Pressure 131/79 141/89 H Pulse Oximetry 98 96 97 09/30/20 22:00 10/01/20 00:00 10/01/20 00:07 Temperature 37.9 C H 37.4 C 37.9 C H Pulse Rate 100 100 Respiratory Rate 16 16 Blood Pressure 141/89 H 133/88 Pulse Oximetry 95 97 10/01/20 06:00 10/01/20 10:00 10/01/20 14:00 Temperature 37.2 C 37.1 C 36.9 C Pulse Rate 93 104 H 89 Respiratory Rate 16 16 16 Blood Pressure 136/86 132/81 130/84 Pulse Oximetry 95 94 94 Intake/Output Intake/Output: Intake & Output 09/28/20 09/29/20 09/30/20 10/01/20 23:59 23:59 23:59 23:59 Intake Total 1760 3860 Output Total 30 780 Balance 1730 3080 Meds/Results Medications: Active Medications Generic Name Dose Route Start Last Admin Trade Name Freq PRN Reason Stop Dose Admin Acetaminophen 500 mg 09/30/20 19:47 10/01/20 00:07 Acetaminophen 500 Mg Tablet PO 500 mg Q6H PRN Administration Mild Pain (1-3) or Fever Hydrocodone Bitart/Acetaminophen 1 tab 09/30/20 19:47 Hydrocodone/Acetaminophen (*Crx) 5-325 Mg Tablet PO Q4H PRN Pain Rated 4-6 Hydrocodone Bitart/Acetaminophen 1 tab 09/30/20 19:47 10/01/20 11:28 Hydrocodone/Acetaminophen (*Crx) 10-325 Mg Tablet PO 1 tab Q4H PRN Administration Pain Rated 7-10 Artificial Tears 1 drop 10/01/20 10:13 10/01/20 11:29 Artificial Tears Ophth Soln 15 Ml Bottle EACH EYE 1 drop BID PRN Administration Itching Enoxaparin Sodium 30 mg 09/30/20 21:00 10/01/20 08:31 Enoxaparin 30 Mg/0.3 Ml Syringe SUB-Q 30 mg Q12HR ARABELLA Administration Fluticasone Propionate 1 spray 10/01/20 00:20 10/01/20 08:31 Fluticasone Propionate 0.05% Na Spr 16 Gm Btl (*Bkc) NASAL 1 spray QAM ARABELLA Administration Cefazolin Sodium 1 gm in 50 mls @ 100 mls/hr 09/30/20 22:00 10/01/20 15:10 Ancef 1 Gm/D5w 50 Ml Pm IVPB Infused Q8HR ARABELLA Infusion Lactated Ringer's 1,000 mls @ 80 mls/hr 09/30/20 19:47 10/01/20 08:27 Lr - Lactated Ringers Iv IV CONT 125 mls/hr .[id number] ARABELLA Administration Metronidazole 500 mg in 100 mls @ 100 mls/hr 09/30/20 22:00 10/01/20 15:13 Flagyl 500 Mg/Iso Soln 100 Ml IVPB 100 mls/hr Q8HR ARABELLA Administration Indometh
[2020-10-01] MEDS: LACTATED RINGERS 1,000 ML 80 ML IV CONT (18:34)
[2020-10-01] MEDS: traZODone HCL 50 MG TABLET 150 MG PO (20:33)
[2020-10-02 00:08] VITALS: BP 130/80; PULSE 85; RESP 16; TEMP 36.6; O2SAT 95
[2020-10-02 05:01] VITALS: BP 129/82; PULSE 89; RESP 16; TEMP 36.6; O2SAT 92
[2020-10-02] MEDS: metroNIDAZOLE 500 MG/ISO 100ML 500 MG/100 ML BAG 100 MG IVPB (05:38)
[2020-10-02] MEDS: HYDROcodone/acetaminophen (*CRX) 5-325 MG TABLET 1 TAB PO ×2 (05:41→11:16)
--- NOTE | 2020-10-02 07:49 | PM.DS ---
DS: Admitting Diagnosis Admitting Diagnosis Emphysematous acute cholecystitis sepsis gout essential hypertension DS: Discharge Diagnosis Discharge Diagnosis (1) Acute emphysematous cholecystitis: Code(s): K81.0 - Acute cholecystitis Status: Acute (2) Essential hypertension: Code(s): I10 - Essential (primary) hypertension Status: Chronic (3) Gout: Code(s): M10.9 - Gout, unspecified Status: Chronic DS: Summary Hospital Course Hospital Course: the patient is a 69-year-old man who developed abdominal pain about 4 days before admission. The pain was persistent and he went to the emergency room the day before admission. It seemed to be mostly right upper quadrant pain. He was evaluated in the emergency room. His pain improved with analgesics. Imaging of both CT of the abdomen as well as ultrasound of the gallbladder were negative other than a distended gallbladder. No stones were noted. Chemistries were unremarkable. The patient went home but his pain got worse again. It was even more severe. He came back to the hospital on 09/30. In the emergency room on this occasion, [place] [address] scan of the abdomen pelvis showed emphysematous acute cholecystitis. Dr. álvarez took the patient to surgery from the emergency room. He underwent emergent laparoscopic cholecystectomy. At surgery the gallbladder was gangrenous with blood in the gallbladder. It was severely inflamed quite consistent with the clinical presentation. Pathology is pending at the time of this dictation. After surgery the patient was continued on IV antibiotics with cefazolin and metronidazole. He was feeling better on postop day 1. And was started on liquids eventually being advanced to a low-fat diet. He tolerated this well. His CAIT drain showed only serous fluid on both postop days 1. And 2. He was comfortable on oral analgesics. He is discharged now on postop day 2. In much improved condition. His CAIT drain was removed prior to discharge. He will go home on oral antibiotics and follow up with Dr. álvarez in 2 weeks. Status at Discharge Overall status at discharge: patient is progressing back to baseline Time Spent with Patient Time attestation: Total time spent providing and/or coordinating discharge services: Exam Const: General: comfortable and no acute distress; No confusion Orientation/consciousness: patient oriented x3 and No confusion GI: Inspection: incision ( All incisions healing well, serous fluid in CAIT drain) GI Palp: Yes Soft to palpation, Yes Tenderness to palpation present (GI) ( incisional tenderness noted especially at CAIT drain site), No Guarding due to palpation present (GI) and No Rebound tenderness present Auscultation: normal bowel sounds Neuro: General: patient oriented x3, no focal motor deficits and No confusion Extrem: General: no calf tenderness and no edema Psych: Affect: normal affect Insight: Good insight present (Psych) Judgement: Good judgement present (Psych) DS: Data Data Completed and Pending Pending studies at discharge: Pending at discharge 09/30/20 17:01 Surgical [PTH] Routine Labs on day of discharge: Preliminary micro results at discharge 09/30/20 15:04 Blood Culture - Preliminary Blood 09/30/20 14:58 Blood Culture - Preliminary Blood Discharge Plan Discharge Attending physician on discharge: Justin Álvarez Consulting providers: Adriana De La Rosa Discharging Clinician: Justin Álvarez Anticipated Discharge Date/Time: 10/02/20 07:58 Patient Disposition: Home, Self-Care Activity: may shower, no straining and as tolerated Diet: low fat Wound Care Instructions: keep dressing dry, remove dressing to shower and change dressing daily Discharge Instructions: Ambulate 3-4 x per day and as tolerated. No lifting over 15-20lbs. May bathe or shower starting tomorrow. Stairs are OK. May drive a car in 3 days.
[2020-10-02 08:00] VITALS: BP 122/71; PULSE 96; RESP 18; TEMP 36.2; O2SAT 94
[2020-10-02] MEDS: FEBUXOSTAT 40 MG TABLET PO (09:02)
[2020-10-02] MEDS: LORATADINE 5 MG TABLET PO (09:02)
[2020-10-02] MEDS: lisinopriL 20 MG TABLET PO (09:02)
[2020-10-02] MEDS: PANTOPRAZOLE 40 MG TABLET PO (09:02)
[2020-10-02] MEDS: FLUTICASONE PROPIONATE 0.05% NA SPR 16 GM BTL (*BKC) 1 SPRAY NASAL (09:03)
[2020-10-02] MEDS: ENOXAPARIN 40 MG/0.4 ML SYRINGE SUB-Q (09:03)
[2020-10-02 09:04] LABS: Hematocrit 43.6 % (42.0-52.0); Hemoglobin 14.4 g/dL (14.0-18.0); Mean Corpuscular Hemoglobin 30.8 pg (26-34); Mean Corpuscular Volume 93.2 fl (80-100); Mean Platelet Volume 10.2 fl (7.4-10.4); Platelet Count Result 183 k/mm3 (150-375); Red Blood Count 4.68 M/mm3 (4.6-6.20); Red Cell Distribution Width 13.4 % (11.5-14.5); White Blood Count 9.1 K/mm3 (4.5-10.0)
[2020-10-02 09:27] LABS: Anion Gap 5 mmol/L (8-16); Blood Urea Nitrogen 14 mg/dL (9-20); Calcium 8.5 mg/dL (8.4-10.2); Carbon Dioxide 26 mmol/L (22-30); Chloride 101 mmol/L (98-107); Estimated CRCL calculation 59 ml/min; Estimated Glomerular Filt Rate > 60; Glucose 138 mg/dL (65-110); Potassium 3.2 mmol/L (3.4-5.0); Sodium 132 mmol/L (137-145)
== END 2020-10-02 12:30 | disposition home or self-care (01) | DRG 419 ==
LOC: ANHED 14:54 → ANH2MED 15:52
PROVIDERS: Admitting Provider Surgery; Emergency Provider Emergency Medicine; PCP Internal Medicine; Visit Provider Surgery
PROC: 0FT44ZZ Resection of Gallbladder, Percutaneous Endoscopic Approach (ICD-10-PCS; CPT 47562; principal; 2020-09-30 16:30)
DX: K81.0 Acute cholecystitis (principal); K82.A1 Gangrene of gallbladder in cholecystitis; K21.9 Gastro-esophageal reflux disease without esophagitis; I10 Essential (primary) hypertension; M10.9 Gout, unspecified; R73.03 Prediabetes; Z87.891 Personal history of nicotine dependence
CPT/HCPCS: 36415; 74177; 76705; 80048; 80053; 81001; 83605; 83690; 85025; 85027; 87040; 88304; 93005; 96361; 96365; 96366; 96367; 96372; 96374; 96375; 96376; 99284; 99285; A9270; C1713; C9113; G0378; J0330; J0690; J1100; J1170; J1580; J1650; J1956; J2250; J2270; J2405; J2550; J2704; J2710; J3010; J7030; J7120; Q9967

== ENCOUNTER 2021-01-18 14:52 | Emergency (ER) | payer MEDICARE, SELFPAY ==
--- NOTE | 2021-01-18 14:59 | ED.URI ---
HPI - URI/Sore Throat General Chief Complaint: Upper Respiratory Infection Stated Complaint: Sinus Time Seen by Provider: 01/18/21 14:59 Source: patient, RN notes reviewed and old records reviewed Mode of arrival: ambulatory Limitations: no limitations History of Present Illness HPI Narrative: 70 yo male presents to the [facility] with C/O nasal congestion, cough since Monday, 2 days ago. States he is try taking Mucinex which has helped a great deal. Patient states that he is truly frustrated with his doctor today, was on hold 3 times for long periods of time. Denies chest pain or abdominal pain. No fevers. Reports that he is fully vaccinated. MD elicited complaint: nasal congestion Related Data Home Medications Medication Instructions Recorded Confirmed trazodone 150 mg PO HS 09/30/20 01/18/21 Allergies Allergy/AdvReac Type Severity Reaction Status Date / Time Penicillins Allergy Intermediate NAUSEA & Verified 01/18/21 15:09 RASH levofloxacin [From Levaquin] Allergy Unknown Swelling Verified 01/18/21 15:09 allopurinol Allergy Swelling Verified 01/18/21 15:09 Review of Systems Review of Systems: All systems reviewed & are unremarkable except as noted in HPI and below Constitutional: Constitutional: Reports no additional constitutional complaints, Denies chills and Denies fever(s) Eyes: Eyes: Reports no additional eye complaints, Denies change in vision and Denies photophobia ENT: Reports as per HPI, Reports nasal congestion and Denies sore throat Cardiovascular: Cardiovascular: Reports no additional cardiovascular complaints Respiratory: Respiratory: Reports no additional respiratory complaints Gastrointestinal: Gastrointestinal: Reports no additional gastrointestinal complaints Musculoskeletal: Musculoskeletal: Reports no additional musculoskeletal complaints Integumentary/Breasts: Skin/Breast: Reports system reviewed and no additional complaints, except as docu Neurologic: Reports system reviewed and no additional complaints, except as documented Psychiatric: Psychiatric: Reports no additional psychiatric complaints Allergic/Immunologic: Allergic/Immunologic: Reports no additional allergic/immunologic complaints [facility] Past Medical History Medical History Acute emphysematous cholecystitis Chronic GERD Essential hypertension Gout Prediabetes Surgical History Surgical History Hx laparoscopic cholecystectomy 09/30/20 Social History Social History (Reviewed 01/18/21 @ 15:02 by Barbra Valencia Smoking packs per day: 1 Smoking cigarettes per day: 20.0 Tobacco type: pipe Second hand tobacco smoke exposure: Yes Alcohol intake: current Drinks per week: 3 Substance use: never Substance use type: does not use Spiritual care concerns: No Comments At the time of my signature, I reviewed and agree with the nursing past medical, surgical, social, and family history. There is no relevant family history pertinent to the patient complaint. Exam Const: General: healthy appearing, no acute distress and alert Nutritional Appearance: well nourished Orientation/consciousness: patient oriented x3 Limitations: no limitations HENMT: Head: normal to inspection Ears: external ears normal, TM's normal bilaterally and EAC's normal Eyes: Pupils: Equal, round and reactive pupils present Neck: Neck: normal visual inspection, no lymphadenopathy and no meningeal signs Chest: Chest palpation & inspection: normal inspection of the chest Resp: Effort & Inspection: normal respiratory effort Auscultation: clear to auscultation bilaterally Cardio: Rate: regular rate Rhythm: regular rhythm GI: GI Palp: Yes Soft to palpation and No Tenderness to palpation present (GI) Back/Spine/Pelvis: Back: no CVA tenderness Skin: General skin exam: normal color Rashes: no rashes Wounds: no wounds N
[2021-01-18 15:02] VITALS: BP 153/104; PULSE 89; RESP 18; TEMP 36.4; O2SAT 99
== END 2021-01-18 15:55 | disposition home or self-care (01) ==
PROVIDERS: Emergency Provider Nurse Practitioner; PCP Internal Medicine
DX: R09.82 Postnasal drip (principal); I10 Essential (primary) hypertension; F17.210 Nicotine dependence, cigarettes, uncomplicated
CPT/HCPCS: 87804; 99213; G0463

== ENCOUNTER → 2021-01-19 01:10 | Outpatient (CLI) | payer MEDICARE, SELFPAY ==
[2021-01-19 13:28] LABS: Influenza Control Positive
[2021-01-20 02:02] LABS: SARS-CoV-2 RNA PCR Negative
== END ==
PROVIDERS: PCP Internal Medicine; Visit Provider Internal Medicine
DX: R09.89 Other specified symptoms and signs involving the circulatory and respiratory systems (principal); Z20.822 Contact with and (suspected) exposure to COVID-19
CPT/HCPCS: 87804; C9803; U0003; U0005

== ENCOUNTER 2021-02-17 16:25 | Emergency (ER) | payer MEDICARE, SELFPAY ==
[2021-02-17 16:58] VITALS: BP 138/114; PULSE 117; RESP 16; TEMP 37.1; O2SAT 98
--- NOTE | 2021-02-17 18:15 | ED.URI ---
HPI - URI/Sore Throat General Chief Complaint: Upper Respiratory Infection Stated Complaint: sinus infection Time Seen by Provider: 02/17/21 17:57 Source: patient and RN notes reviewed Mode of arrival: ambulatory Limitations: no limitations History of Present Illness HPI Narrative: Patient presents today complaining of nasal congestion, itchy and watery eyes, left ear clogging, sinus pressure. This has been present for at least a couple of weeks. He just finished a 10-day course of cefdinir 3 to 4 days ago that was prescribed by his PCPs office. He was also told to take Mucinex. States the cefdinir improved his symptoms, but they did not resolve completely. MD elicited complaint: nasal congestion and sinus pain Related Data Allergies Allergy/AdvReac Type Severity Reaction Status Date / Time Penicillins Allergy Intermediate NAUSEA & Verified 02/17/21 17:18 RASH levofloxacin [From Levaquin] Allergy Unknown Swelling Verified 02/17/21 17:18 allopurinol Allergy Swelling Verified 02/17/21 17:18 Review of Systems Review of Systems: CONSTITUTIONAL: Denies body aches, fever, chills, or sweats. EYES: Denies visual changes, redness, or discharge.+ Itchy and watery eyes ENT: Denies rhinorrhea, sore throat.+ Congestion, sinus pressure, left ear clogging CARDIOVASCULAR: Denies chest pain, palpitations, or edema. RESPIRATORY: Denies cough or dyspnea. GASTROINTESTINAL: Denies abdominal pain, nausea, vomiting, or diarrhea. GENITOURINARY: Denies dysuria or hematuria. SKIN: Denies rash, itching, or wounds. MUSCULOSKELETAL: Denies back pain, joint pain, or myalgia. NEUROLOGIC: Denies headache, numbness, tingling, or weakness. PSYCH: Denies depression or anxiety. [facility] Past Medical History Medical History Acute emphysematous cholecystitis Chronic GERD Essential hypertension Gout Prediabetes Surgical History Surgical History Hx laparoscopic cholecystectomy 09/30/20 Social History Social History Smoking packs per day: 1 Smoking cigarettes per day: 20.0 Years smoked: 2 Smoking pack-years: 2.00 Smoking status: Former smoker Tobacco type: pipe Second hand tobacco smoke exposure: Yes Smoking end date: 02/15/88 Alcohol intake: current Drinks per week: 3 Substance use: never Substance use type: does not use Spiritual care concerns: No Comments At time of signature, I have reviewed and agree with nursing past medical, surgical, social and family history unless otherwise noted. Please see nursing chart for further information. There is no relevant family history pertinent to the presenting complaint Exam Narrative: GENERAL: Well-appearing, well-nourished, and in no acute distress. HEAD: Normocephalic, atraumatic. EYES: EOMI. PERRL. Injected scleras bilaterally. ENT: Mucous membranes pink and moist. Nares congested. Bilateral erythematous and swollen nasal turbinates with purulent discharge on the left. No rhinorrhea. TMs normal bilaterally. Throat normal with purulent postnasal drainage. Uvula midline. NECK: Normal AROM. Supple. No lymphadenopathy. CHEST: No respiratory distress. Clear to auscultation. HEART: Regular rate and rhythm. No murmur appreciated. Normal peripheral pulses. EXTREMITIES: Normal range of motion. No edema. SKIN: Warm, dry, no rash. Capillary refill normal. Normal skin turgor. NEURO: No focal deficits. Alert and oriented x3. Gait steady. PSYCH: Normal affect. No signs of depression or anxiety. Course Course Level of Care: Express Care Visit Vital Signs Vital signs: Vital Signs Temperature 98.7 F 02/17/21 16:58 Pulse Rate 117 H 02/17/21 16:58 Respiratory Rate 16 02/17/21 16:58 Blood Pressure 138/114 H 02/17/21 16:58 Pulse Oximetry 98 02/17/21 16:58 Temperature 98.7 F
== END 2021-02-17 18:20 | disposition home or self-care (01) ==
PROVIDERS: Emergency Provider Nurse Practitioner; PCP Internal Medicine
DX: J32.9 Chronic sinusitis, unspecified (principal); Z87.891 Personal history of nicotine dependence; K21.9 Gastro-esophageal reflux disease without esophagitis; I10 Essential (primary) hypertension; M10.9 Gout, unspecified; R73.03 Prediabetes
CPT/HCPCS: 99213; G0463

== ENCOUNTER 2021-05-20 11:32 | Emergency (ER) | payer MEDICARE, SELFPAY ==
[2021-05-20 11:37] VITALS: BP 136/101; PULSE 112; RESP 18; TEMP 36.8; O2SAT 99
--- NOTE | 2021-05-20 11:37 | ED.EAR ---
HPI - Ear Problem General Chief complaint: Ear Stated complaint: ear pain Time Seen by Provider: 05/20/21 11:40 Source: patient, RN notes reviewed and old records reviewed Mode of arrival: ambulatory Limitations: no limitations History of Present Illness HPI Narrative: 70-year-old male presents to the [facility] with complaints of left ear pain. States over the last few days his ears have been increasingly itchy and have been using Q-tips a little more aggressively than normal. States he woke up with the ear pain. No treatment prior to arrival. MD Complaint: ear pain Location: left ear Related Data Home Medications Medication Instructions Recorded Confirmed tadalafil 20 mg tablet 20 mg PO DAILY PRN tablet 03/24/21 05/20/21 pantoprazole 40 mg PO DAILY 05/20/21 05/20/21 Allergies Allergy/AdvReac Type Severity Reaction Status Date / Time Penicillins Allergy Intermediate NAUSEA & Verified 05/20/21 11:45 RASH levofloxacin [From Levaquin] Allergy Unknown Swelling Verified 05/20/21 11:45 allopurinol Allergy Swelling Verified 05/20/21 11:45 Review of Systems Review of Systems: All systems reviewed & are unremarkable except as noted in HPI and below Constitutional: Constitutional: Reports no additional constitutional complaints, Denies chills and Denies fever(s) Eyes: Eyes: Reports no additional eye complaints ENT: Reports as per HPI, Denies change in voice, Denies dental pain, Denies vertigo, Denies dizziness and Denies throat swelling Comments: Ear pain left Cardiovascular: Cardiovascular: Reports no additional cardiovascular complaints, Denies chest pain and Denies dyspnea Respiratory: Respiratory: Reports no additional respiratory complaints, Denies cough and Denies dyspnea Gastrointestinal: Gastrointestinal: Reports no additional gastrointestinal complaints, Denies abdominal pain, Denies nausea and Denies vomiting Musculoskeletal: Musculoskeletal: Reports no additional musculoskeletal complaints Integumentary/Breasts: Skin/Breast: Reports system reviewed and no additional complaints, except as docu Neurologic: Reports system reviewed and no additional complaints, except as documented, Denies vertigo and Denies dizziness Psychiatric: Psychiatric: Reports no additional psychiatric complaints Allergic/Immunologic: Allergic/Immunologic: Reports no additional allergic/immunologic complaints and Denies throat swelling PMFSH Past Medical History Medical History Acute emphysematous cholecystitis Chronic GERD Essential hypertension Gout Prediabetes Surgical History Surgical History Hx laparoscopic cholecystectomy 09/30/20 Social History Social History Smoking packs per day: 1 Smoking cigarettes per day: 20.0 Years smoked: 2 Smoking pack-years: 2.00 Smoking status: Former smoker Tobacco type: pipe Second hand tobacco smoke exposure: Yes Smoking end date: 02/15/88 Alcohol intake: current Drinks per week: 3 Substance use: never Substance use type: does not use Spiritual care concerns: No Comments At the time of my signature, I reviewed and agree with the nursing past medical, surgical, social, and family history. There is no relevant family history pertinent to the patient complaint. Exam Const: General: healthy appearing and no acute distress Nutritional Appearance: well nourished Orientation/consciousness: patient oriented x3 Limitations: no limitations HENMT: Head: normal to inspection Ears: external ears normal, TM's normal bilaterally and Abnormal EAC present erythema on the left and EAC tenderness on the left General nose exam: Normal external nose present and Normal nasal mucous membranes and turbinates present Face and sinus: normal facial exam Mouth: Yes Normal oral and palatal mucosa present Throat
== END 2021-05-20 11:50 | disposition home or self-care (01) ==
PROVIDERS: Emergency Provider Nurse Practitioner; PCP Internal Medicine
DX: H66.92 Otitis media, unspecified, left ear (principal); Z87.891 Personal history of nicotine dependence; K21.9 Gastro-esophageal reflux disease without esophagitis; I10 Essential (primary) hypertension; M10.9 Gout, unspecified; R73.03 Prediabetes
CPT/HCPCS: 99213; G0463

== ENCOUNTER 2021-10-02 14:36 | Emergency (ER) | payer MEDICARE, SELFPAY ==
[2021-10-02 14:53] VITALS: BP 144/101; PULSE 102; RESP 16; TEMP 36.7; O2SAT 99
--- NOTE | 2021-10-02 15:17 | ED.MALEGU ---
HPI - Male Genitourinary General Chief complaint: Urogenital-Male Stated complaint: UTI Time Seen by Provider: 10/02/21 15:18 History of Present Illness HPI Narrative: Robe Cordero is a 70 yo male with a PMH of uti, seasonal allergies, GERD, hypertension, [facility] has he has had a history of UTI. He has no dysuria no burning no problem emptying bladder but because of the color of his urine he was concerned that he might be having or developing a UTI Related Data Home Medications Medication Instructions Recorded Confirmed tadalafil 20 mg tablet 20 mg PO DAILY PRN Erectile 03/24/21 10/02/21 Dysfunction Allergies Allergy/AdvReac Type Severity Reaction Status Date / Time Penicillins Allergy Intermediate NAUSEA & Verified 10/02/21 14:48 RASH levofloxacin [From Levaquin] Allergy Unknown Swelling Verified 10/02/21 14:48 allopurinol Allergy Swelling Verified 10/02/21 14:48 Review of Systems Review of Systems: CONSTITUTIONAL: Denies fever, chills, sweats. EYES: Denies visual changes, redness, discharge. ENT: Denies rhinorrhea, congestion, sore throat, otalgia. CARDIOVASCULAR: Denies chest pain, palpitations, edema. RESPIRATORY: Denies dyspnea, wheezing, cough GASTROINTESTINAL: Denies abdominal pain, nausea, vomiting, diarrhea. GENITOURINARY: Denies dysuria, hematuria, abnormal discharge SKIN: Denies rash or itching. NEUROLOGIC: Denies numbness, or focal weakness. PSYCHIATRIC: Denies anxiety or depression. Dark yellow urine and question about UTI [facility] Past Medical History Medical History Acute emphysematous cholecystitis Chronic GERD Essential hypertension Gout Prediabetes Surgical History Surgical History Hx laparoscopic cholecystectomy 09/30/20 Social History Social History Smoking packs per day: 1 Smoking cigarettes per day: 20.0 Years smoked: 2 Smoking pack-years: 2.00 Smoking status: Former smoker Tobacco type: pipe Second hand tobacco smoke exposure: Yes Smoking end date: 02/15/88 Alcohol intake: current Drinks per week: 3 Substance use: never Substance use type: does not use Spiritual care concerns: No Comments At time of signature, I agree with nursing past medical, surgical, social and family history. There is no relevant family history pertinent to the presenting complaint. Exam Narrative: GENERAL: This is a well-nourished, well-developed patient, in mild distress. HEAD: normocephalic, atraumatic. EYES: Sclera clear/white. Vision is grossly intact. EARS: External ears normal, auditory canals clear and without drainage, TMs normal without perforation. Hearing grossly intact. NOSE: External nose normal without nasal discharge, nares without redness, no rhinorrhea. THROAT: Mucous membranes moist, NECK: Neck supple, non-tender CARDIOVASCULAR: Regular rate and rhythm without murmurs, gallops, or rubs. RESPIRATORY: Clear to auscultation. Breath sounds equal bilaterally. No wheezes, rales, or rhonchi. GASTROINTESTINAL: Not done SKIN: warm, intact with no suspicious lesions or rash, good texture and turgor. NEURO: awake, alert, and oriented to person, place and time. There were no obvious focal neurologic abnormalities. Steady gait EXTREMITIES: Normal range of motion. BACK: Nontender without deformity Course Course Emergency Course: Patient came in complaining of concentrated urine with no symptoms and no dysuria but has a history of UTI at [facility] [place] make sure he does not develop 1 UA is negative for all elements Discussed hydration with patient ways to manage his dislike of water Level of Care: Express Care Visit Vital Signs Vital signs: Vital Signs Temperature 98.1 F 10/02/21 14:53 Pulse Rate 102 H 10/02/21 14:53 Respiratory Rate 16 10/02/21 14:53 B
== END 2021-10-02 15:46 | disposition home or self-care (01) ==
PROVIDERS: Emergency Provider Nurse Practitioner; PCP Internal Medicine
DX: R82.90 Unspecified abnormal findings in urine (principal); Z87.891 Personal history of nicotine dependence; K21.9 Gastro-esophageal reflux disease without esophagitis; I10 Essential (primary) hypertension; M10.9 Gout, unspecified; R73.03 Prediabetes
CPT/HCPCS: 81003; 99212; G0463

== ENCOUNTER 2022-01-05 11:06 | Emergency (ER) | payer MEDICARE, SELFPAY ==
[2022-01-05 11:26] VITALS: BP 139/100; PULSE 119; RESP 18; TEMP 36.9; O2SAT 96
--- NOTE | 2022-01-05 13:22 | ED.URI ---
HPI - URI/Sore Throat General Chief Complaint: Upper Respiratory Infection Stated Complaint: uri Time Seen by Provider: 01/05/22 13:15 Source: patient, RN notes reviewed and old records reviewed Mode of arrival: ambulatory Limitations: no limitations History of Present Illness HPI Narrative: 71 year old male who presents to [facility] with complaints of sinus pressure with drainage, with productive cough and sore throat for the past 4 days. Patient reports that he has taken zyrtec,mucinex, and Zicam for his symptoms. Patient reports that he has been COVID vaccinated but has not had flu shot.Patient reports history of sinusitis and symptoms are keeping him awake at night. patient reports no acute fevers chills or sweats or any body aches. MD elicited complaint: cough, sore throat, rhinorrhea, nasal congestion and sinus pain Pertinent past history: sinusitis Onset (ago): day(s) (4) Related Data Home Medications Medication Instructions Recorded Confirmed cetirizine 10 mg tablet 10 mg DAILY 01/05/22 01/05/22 esomeprazole magnesium 40 mg 40 mg DAILY 01/05/22 01/05/22 capsule,delayed release famotidine 20 mg tablet 20 mg DAILY 01/05/22 01/05/22 febuxostat 40 mg tablet 40 mg DAILY 01/05/22 01/05/22 fluticasone propionate 50 1 mcg intranasal DIRECTED 01/05/22 01/05/22 mcg/actuation nasal spray,suspension lisinopril 20 mg tablet 20 mg DAILY 01/05/22 01/05/22 pantoprazole 40 mg tablet,delayed 40 mg PO DAILY 01/05/22 01/05/22 release trazodone 150 mg tablet 150 mg DAILY 01/05/22 01/05/22 Allergies Allergy/AdvReac Type Severity Reaction Status Date / Time Penicillins Allergy Intermediate NAUSEA & Verified 01/05/22 11:40 RASH levofloxacin [From Levaquin] Allergy Unknown Swelling Verified 01/05/22 11:40 allopurinol Allergy Swelling Verified 01/05/22 11:40 Review of Systems Review of Systems: CONSTITUTIONAL: Reports malaise,no chills, sweats, or fever. crabby EYES: Denies visual changes, redness, or discharge. ENT: Reports rhinorrhea, congestion, sinus pain,no otalgia and sore throat. CARDIOVASCULAR: Denies chest pain, palpitations, or edema. RESPIRATORY: Reports cough.? Denies dyspnea. GASTROINTESTINAL: Denies abdominal pain, nausea, vomiting, diarrhea SKIN: Denies rash or itching. MUSCULOSKELETAL: Denies myalgia. NEUROLOGIC: Denies headache. All systems reviewed & are unremarkable except as noted in HPI and below PMFSH Past Medical History Medical History (Updated 01/09/22 @ 11:00 by Jenn Ivory NP) Acute emphysematous cholecystitis Chronic GERD Essential hypertension Gout Prediabetes Sinusitis Surgical History Surgical History Hx laparoscopic cholecystectomy 09/30/20 Social History Social History Smoking packs per day: 1 Smoking cigarettes per day: 20.0 Years smoked: 2 Smoking pack-years: 2.00 Smoking status: Former smoker Tobacco type: pipe Second hand tobacco smoke exposure: Yes Smoking end date: 02/15/88 Alcohol intake: current Drinks per week: 3 Substance use: never Substance use type: does not use Spiritual care concerns: No Comments At time of signature, agree with nursing past medical, surgical, social and family history. There is no relevant family history pertinent to the presenting complaint Exam Narrative: GENERAL: Well-appearing, well-nourished, and in no acute distress. HEAD: Normocephalic EYES: PERRLA, conjunctivae clear ENT: Nares clear, turbinates edematous and erythematous, clear to yellow tinged discharge. Mucous membranes moist. TM pearly dickerson with dull light reflex bilaterally; no tragal tenderness. Oropharynx erythematous without lesions. Tonsils not enlarged and without exudate, no drooling, no hoarseness, no trismus, uvula midline.post nasal drainage NECK: Supple. No lymphadenopathy CHEST: Clear to au
== END 2022-01-05 13:36 | disposition home or self-care (01) ==
PROVIDERS: Emergency Provider Registered Nurse; PCP Internal Medicine
DX: J32.9 Chronic sinusitis, unspecified (principal); Z87.891 Personal history of nicotine dependence; K21.9 Gastro-esophageal reflux disease without esophagitis; I10 Essential (primary) hypertension; M10.9 Gout, unspecified; R73.03 Prediabetes
CPT/HCPCS: 99213; G0463

== ENCOUNTER 2022-01-26 08:51 | Emergency (ER) | payer MEDICARE, SELFPAY ==
--- NOTE | ~2022-01-26 | XR_ITS ---
XR chest 2V DATE: 01/26/2022 09:22 INDICATION: Cough for 2 weeks TECHNIQUE: Standing PA and lateral views COMPARISON: 01/22/2018 PA and lateral chest FINDINGS: There is minimal infiltrate or atelectasis in the left lung base, rendering the posterior l eft diaphragm relatively indistinct on the lateral view. The lungs otherwise appear clear. No pleural effusion or pulmonary vascular congestion or pneumothorax. Normal heart size. Aortic arch calcification and aortic unfolding. No hilar or mediastinal enlargemen t. Status post cholecystectomy. Included skeletal structures are unremarkable. IMPRESSION: Minimal infiltrate or atelectasis at the left lung base Aortic atherosclerosis Status post cholecystectomy Reviewed, dictated and finalized at location B. [employer]PER[employer]
--- NOTE | 2022-01-26 08:53 | ED.URI ---
HPI - URI/Sore Throat General Chief Complaint: Upper Respiratory Infection Stated Complaint: uri Time Seen by Provider: 01/26/22 08:53 Source: patient Mode of arrival: ambulatory Limitations: no limitations History of Present Illness HPI Narrative: Mr. Cordero is a 71-year-old male patient presenting to the clinic today with complaints of cough x3 weeks. He reports he is having some white phlegm, but the cough. He was seen here 2 weeks ago and given a prescription for doxycycline and has finished that he states he was treated for bacterial rhinosinusitis. States that the doxycycline did not really help his symptoms. States his requested he come in today for chest x-ray. He reports he had a low-grade temp last night. He also states he has had some trouble with urination yesterday. MD elicited complaint: sore throat and nasal congestion Related Data Home Medications Medication Instructions Recorded Confirmed cetirizine 10 mg tablet 10 mg DAILY 01/05/22 01/26/22 esomeprazole magnesium 40 mg 40 mg DAILY 01/05/22 01/26/22 capsule,delayed release famotidine 20 mg tablet 20 mg DAILY 01/05/22 01/26/22 febuxostat 40 mg tablet 40 mg DAILY 01/05/22 01/26/22 fluticasone propionate 50 1 mcg intranasal DIRECTED 01/05/22 01/26/22 mcg/actuation nasal spray,suspension lisinopril 20 mg tablet 20 mg DAILY 01/05/22 01/26/22 pantoprazole 40 mg tablet,delayed 40 mg PO DAILY 01/05/22 01/26/22 release trazodone 150 mg tablet 150 mg DAILY 01/05/22 01/26/22 Allergies Allergy/AdvReac Type Severity Reaction Status Date / Time Penicillins Allergy Intermediate NAUSEA & Verified 01/26/22 08:55 RASH levofloxacin [From Levaquin] Allergy Unknown Swelling Verified 01/26/22 08:55 allopurinol Allergy Swelling Verified 01/26/22 08:55 Review of Systems Review of Systems: Pertinent positives per HPI. Patient denies any fever, chills, rash, headache, visual changes, dizziness, shortness of breath, chest pain, palpitations, nausea, vomiting, diarrhea, constipation, abdominal pain, PMFSH Past Medical History Medical History Acute emphysematous cholecystitis Chronic GERD Essential hypertension Gout Prediabetes Sinusitis Surgical History Surgical History Hx laparoscopic cholecystectomy 09/30/20 Social History Social History Smoking packs per day: 1 Smoking cigarettes per day: 20.0 Years smoked: 2 Smoking pack-years: 2.00 Smoking status: Former smoker Tobacco type: pipe Second hand tobacco smoke exposure: Yes Smoking end date: 02/15/88 Alcohol intake: current Drinks per week: 3 Substance use: never Substance use type: does not use Spiritual care concerns: No Comments At the time of my signature, I reviewed and agree with the nursing past medical, surgical, social, and family history. There is no relevant family history pertinent to the patient complaint. Exam Narrative: General: Well-developed, well nourished, in no apparent distress Head: Normocephalic, atraumatic Eyes: Pupils equally round and reactive to light bilaterally, EOM intact, sclera and conjunctive clear, no discharge, lids normal Ears: TMs intact and clear, ear canals clear, no drainage, grossly hearing normal. Nose: Nares patent, clear nasal discharge, moderate inflammation, no sinus tenderness. Mouth: Oral pharynx without lesions or masses, good dentition, MMM. postnasal drip Neck: Supple, trachea midline, no enlargement of anterior or posterior cervical nodes, no thyroid masses or goiter palpable. Cardio: Regular rate and rhythm, s1 and s2 normal, no murmur appreciated. Resp: Faint crackles in bilateral lower lung bases posteriorly, no rhonchi, wheezing or rubs Course Course Emergency Course: Portions of this record may have b
[2022-01-26 08:57] VITALS: BP 139/91; PULSE 126; RESP 20; TEMP 36.1; O2SAT 96
== END 2022-01-26 09:51 | disposition home or self-care (01) ==
PROVIDERS: Emergency Provider Nurse Practitioner Family; PCP Internal Medicine
DX: N39.0 Urinary tract infection, site not specified (principal); J18.9 Pneumonia, unspecified organism; J01.90 Acute sinusitis, unspecified; Z87.891 Personal history of nicotine dependence; K21.9 Gastro-esophageal reflux disease without esophagitis; I10 Essential (primary) hypertension; M10.9 Gout, unspecified; R73.03 Prediabetes
CPT/HCPCS: 71046; 81003; 87077; 87086; 87186; 99213; G0463

== ENCOUNTER 2022-02-10 15:23 | Emergency (ER) | payer MEDICARE, SELFPAY ==
--- NOTE | 2022-02-10 15:35 | ED.MALEGU ---
HPI - Male Genitourinary General Chief complaint: Urogenital-Male Stated complaint: uti Time Seen by Provider: 02/10/22 15:36 Source: patient and RN notes reviewed Mode of arrival: ambulatory Limitations: no limitations History of Present Illness HPI Narrative: 8-year-old male presented for concern of recurrent UTI. He endorses urinary frequency and dark urine color over the last few days. He was treated for UTI on 01/26/2022. He was also treated at bedtime for pneumonia, he was given Keflex and a Z-Luisito. He endorses improvement in breathing. He denies cough, shortness of breath, wheezing, nausea, vomiting, diarrhea, abdominal pain, flank pain, fevers or chills. He follows with Dr. Ross for hx renal stones. Currently establishing with new PCP. Related Data Home Medications Medication Instructions Recorded Confirmed cetirizine 10 mg tablet 10 mg DAILY 01/05/22 02/10/22 esomeprazole magnesium 40 mg 40 mg DAILY 01/05/22 02/10/22 capsule,delayed release famotidine 20 mg tablet 20 mg DAILY 01/05/22 02/10/22 febuxostat 40 mg tablet 40 mg DAILY 01/05/22 02/10/22 fluticasone propionate 50 1 mcg intranasal DIRECTED 01/05/22 02/10/22 mcg/actuation nasal spray,suspension lisinopril 20 mg tablet 20 mg DAILY 01/05/22 02/10/22 pantoprazole 40 mg tablet,delayed 40 mg PO DAILY 01/05/22 02/10/22 release trazodone 150 mg tablet 150 mg DAILY 01/05/22 02/10/22 Allergies Allergy/AdvReac Type Severity Reaction Status Date / Time allopurinol Allergy Intermediate Swelling Verified 02/10/22 15:51 levofloxacin [From Levaquin] Allergy Intermediate Swelling Verified 02/10/22 15:51 Penicillins Allergy Intermediate NAUSEA & Verified 02/10/22 15:30 RASH Review of Systems Review of Systems: CONSTITUTIONAL: Denies body aches, fever, chills, or sweats. CARDIOVASCULAR: Denies chest pain, palpitations, or edema. RESPIRATORY: Denies cough or dyspnea. GASTROINTESTINAL: Denies abdominal pain, nausea, vomiting, or diarrhea. GENITOURINARY: per HPI SKIN: Denies rash, itching, or wounds. MUSCULOSKELETAL: Denies back pain or myalgia. [facility] Past Medical History Medical History Acute emphysematous cholecystitis Chronic GERD Essential hypertension Gout Prediabetes Sinusitis Surgical History Surgical History Hx laparoscopic cholecystectomy 09/30/20 Social History Social History Smoking packs per day: 1 Smoking cigarettes per day: 20.0 Years smoked: 2 Smoking pack-years: 2.00 Smoking status: Former smoker Tobacco type: pipe Second hand tobacco smoke exposure: Yes Smoking end date: 02/15/88 Alcohol intake: current Drinks per week: 3 Substance use: never Substance use type: does not use Spiritual care concerns: No Comments At time of signature, I have reviewed and agree with nursing past medical, surgical, social and family history unless otherwise noted. Please see nursing chart for further information. There is no relevant family history pertinent to the presenting complaint Exam Narrative: GENERAL: Well-appearing and in no acute distress. ENT: Mucous membranes pink and moist. NECK: Normal AROM. Supple. CHEST: Clear to auscultation. HEART: Regular rate and rhythm. ABDOMEN: Soft, nontender, nondistended, normal active bowel sounds. No CVA tenderness SKIN: Warm, dry, no rash. NEURO: No focal deficits. Alert and oriented x3. Gait steady. PSYCH: Normal affect. Course Course Emergency Course: Patient is aware of diagnosis, understands and agrees to treatment plan. Anticipatory guidance given. Patient agrees to follow-up as directed and is aware of reasons to seek care at the emergency department. Portions of this record may have been created with voice recognition software Level of Care: [facility]
[2022-02-10 15:36] VITALS: BP 151/107; PULSE 116; RESP 16; TEMP 36.1; O2SAT 99
[2022-02-10] MEDS: cefTRIAXone 500 MG, LIDOCAINE HCL 1% LOCAL INJ 1 ML IM (16:02)
[2022-02-10 16:30] VITALS: BP 130/92
== END 2022-02-10 16:30 | disposition home or self-care (01) ==
PROVIDERS: Emergency Provider Nurse Practitioner Family; PCP Internal Medicine
DX: N39.0 Urinary tract infection, site not specified (principal); K21.9 Gastro-esophageal reflux disease without esophagitis; I10 Essential (primary) hypertension; R73.03 Prediabetes; Z87.891 Personal history of nicotine dependence
CPT/HCPCS: 81003; 87077; 87086; 87186; 96372; 99213; G0463; J0696

== ENCOUNTER 2022-03-03 08:05 | Outpatient (CLI) | payer MEDICARE, SELFPAY ==
--- NOTE | ~2022-03-03 | CT_ITS ---
EXAMINATION: CT abdomen pelvis wo/w con DATE: 03/03/2022 08:43 INDICATION: Recurrent urinary tract infection TECHNIQUE: Computed tomography (CT) of the abdomen and pelvis was performed without intravenous contr ast. CT of the abdomen and pelvis was then performed with a total of 130 mL Omnipaque-350 intravenous contrast using a double-bolus technique for simultaneous opacification of the renal parenchyma and r enal collecting system. Automated exposure control and iterative reconstruction technique were employ ed. The dose-length product was 1746.01 mGy-cm. COMPARISON: 09/30/2020 FINDINGS: Mild basilar and dependent atelectasis in the bilateral lower lobes. Mild cardiomegaly. Atherosclerot ic coronary artery calcification. No pericardial or pleural effusion. Small sliding-type hiatal herni a. Cholecystectomy clips the gallbladder fossa. Diffuse hepatic steatosis. Moderate fatty atrophy of the pancreas. Spleen, bilateral adrenal glands and bilateral kidneys are normal. No urolithiasis in e ither kidney or ureter. The bilateral renal collecting systems and ureters are opacified in their ent irety and demonstrate no filling defects or urothelial irregularities. Bladder is normal. Mild prosta tomegaly measuring 4.4 x 3.9 cm . There are few diverticula along the sigmoid colon without adjacent inflammatory stranding to suggest diverticular colitis. Small bowel and appendix are normal. No free intraperitoneal gas or fluid. No pathologically enlarged abdominal or pelvic lymphadenopathy. Severe lumbar spondylosis. IMPRESSION: 1. No urolithiasis or acute intra-abdominal/pelvic process. 2. Mild cardiomegaly. 3. Small sliding-type hiatal hernia. 4. Prostatomegaly. 5. Diffuse hepatic steatosis and moderate fatty atrophy of the pancreas. Reviewed, dictated and finalized at location L. [employer]
[2022-03-03 08:27] LABS: Estimated Glomerular Filt Rate 50
== END 2022-03-03 08:06 | disposition home or self-care (01) ==
PROVIDERS: PCP Family Medicine; Visit Provider Nurse Practitioner
DX: N40.1 Benign prostatic hyperplasia with lower urinary tract symptoms (principal); I51.7 Cardiomegaly; K44.9 Diaphragmatic hernia without obstruction or gangrene; K76.0 Fatty (change of) liver, not elsewhere classified; N39.0 Urinary tract infection, site not specified
CPT/HCPCS: 74178; Q9967

== ENCOUNTER 2022-04-03 13:10 | Emergency (ER) | payer MEDICARE, SELFPAY ==
--- NOTE | ~2022-04-03 | XR_ITS ---
EXAM: XR foot LT min 3V DATE: 04/03/2022 14:28 HISTORY: plantar heel pain injury vs gout . COMPARISON: 07/29/2019. FINDINGS: Normal mineralization. No fracture or dislocation. No lytic or blastic lesion. Mild scatte red degenerative change. Plantar enthesopathy. No erosion or periosteal change. Vascular calcificatio ns. IMPRESSION: No acute osseous finding in the left foot. Reviewed, dictated and finalized at location K. [employer] MA[employer]GER
[2022-04-03 13:36] VITALS: BP 156/95; PULSE 102; RESP 16; TEMP 37.1; O2SAT 99
--- NOTE | 2022-04-03 13:57 | ED.GENADULT ---
HPI - General Adult General Chief complaint: Extremity Injury, Lower Stated complaint: extremity pain Time Seen by Provider: 04/03/22 14:01 Source: patient Mode of arrival: ambulatory Limitations: no limitations History of Present Illness HPI narrative: 71-year-old male presenting for complaint of left heel pain after injury 2 days ago. Patient states he was walking down the stairs, slipped, and landed on the following step. He endorses pain to the plantar aspect of the foot, tender to palpation. Pain is worse after he has been at rest, and then starts to walk. He also endorses a history of gout in his concern for a flare. He denies numbness tingling, weakness, bruising or swelling to the ankle. Not taking anything for symptoms but has been wearing an ankle support. Related Data Home Medications Medication Instructions Recorded Confirmed cetirizine 10 mg tablet 10 mg DAILY 01/05/22 02/10/22 esomeprazole magnesium 40 mg 40 mg DAILY 01/05/22 02/10/22 capsule,delayed release febuxostat 40 mg tablet 40 mg DAILY 01/05/22 02/10/22 fluticasone propionate 50 1 mcg intranasal DIRECTED 01/05/22 02/10/22 mcg/actuation nasal spray,suspension pantoprazole 40 mg tablet,delayed 40 mg PO DAILY 01/05/22 02/10/22 release trazodone 150 mg tablet 150 mg DAILY 01/05/22 02/10/22 methenamine hippurate 1 gram tablet g 04/03/22 tadalafil 20 mg tablet mg 04/03/22 Allergies Allergy/AdvReac Type Severity Reaction Status Date / Time allopurinol Allergy Intermediate Swelling Verified 04/03/22 13:49 levofloxacin [From Levaquin] Allergy Intermediate Swelling Verified 04/03/22 13:49 Penicillins Allergy Intermediate NAUSEA & Verified 04/03/22 13:49 RASH Review of Systems Review of Systems: CONSTITUTIONAL: Denies body aches, fever, chills CARDIOVASCULAR: Denies chest pain, palpitations, or edema. RESPIRATORY: Denies cough or dyspnea. SKIN: Denies rash, itching, or wounds. MUSCULOSKELETAL: Per HPI NEUROLOGIC: Denies headache, numbness, tingling, or weakness. All systems reviewed & are unremarkable except as noted in HPI and below PMFSH Past Medical History Medical History Acute emphysematous cholecystitis Chronic GERD Essential hypertension Gout Prediabetes Sinusitis Surgical History Surgical History Hx laparoscopic cholecystectomy 09/30/20 Social History Social History Smoking packs per day: 1 Smoking cigarettes per day: 20.0 Years smoked: 2 Smoking pack-years: 2.00 Smoking status: Former smoker Tobacco type: pipe Second hand tobacco smoke exposure: Yes Smoking end date: 02/15/88 Alcohol intake: current Drinks per week: 3 Substance use: never Substance use type: does not use Spiritual care concerns: No Comments At time of signature, I have reviewed and agree with nursing past medical, surgical, social and family history unless otherwise noted. Please see nursing chart for further information. There is no relevant family history pertinent to the presenting complaint Exam Narrative: GENERAL: Well-appearing, well-nourished, and in no acute distress. CHEST: Speaks in full sentences. No respiratory distress. HEART: Regular rate and rhythm. Normal and equal peripheral pulses. EXTREMITIES: Left foot plantar surface is tender to palpation at the heel. No ankle swelling or bruising noted, Nontender malleolus. Left foot has normal strength and sensation, normal range of motion. No open wounds or obvious deformity; alignment normal, pulse palpable and equal bilaterally, skin warm, dry, pink. Capillary refill less than 3 seconds. SKIN: Warm, dry, no rash. NEURO: Alert and oriented x3. PSYCH: Normal mood and affect Course Course Emergency Course: Patient is aware of diagnosis, understands and agrees to treatme
== END 2022-04-03 15:04 | disposition home or self-care (01) ==
PROVIDERS: Emergency Provider Nurse Practitioner Family
DX: M79.672 Pain in left foot (principal); Z87.891 Personal history of nicotine dependence; K21.9 Gastro-esophageal reflux disease without esophagitis; I10 Essential (primary) hypertension; M10.9 Gout, unspecified; R73.03 Prediabetes
CPT/HCPCS: 73630; 99213; G0463

== ENCOUNTER 2022-06-15 12:41 | Outpatient (CLI) | payer MEDICARE, SELFPAY ==
[2022-06-15 20:43] LABS: Creatinine Urine 167.9 mg/dL
[2022-06-15 20:48] LABS: MALB Creatinine Ratio 9.5 mg/g (0-30); Microalbumin Urine Random 15.9 mg/L (0-16.7)
[2022-06-15 21:19] LABS: Alanine Aminotransferase 35 U/L (6-50); Albumin Level 4.3 g/dL (3.5-5.1); Alkaline Phosphatase 63 U/L (38-126); Anion Gap 10 mmol/L (8-16); Aspartate Amino Transferase 46 U/L (17-59); Blood Urea Nitrogen 22 mg/dL (9-20); Calcium 9.1 mg/dL (8.4-10.2); Carbon Dioxide 24 mmol/L (22-30); Chloride 105 mmol/L (98-107); Cholesterol 124 mg/dL (0-200); Estimated Glomerular Filt Rate > 60; Glucose 118 mg/dL (65-110); HDL Direct 41 mg/dL; Potassium 4.4 mmol/L (3.4-5.0); Sodium 139 mmol/L (137-145); Triglycerides 105 mg/dL (<150); Uric Acid 4.3 mg/dL (3.5-8.5)
[2022-06-15 21:29] LABS: LDL Cholesterol Direct 65 mg/dL
[2022-06-15 21:47] LABS: Prostate Specific Antigen 6.6 ng/mL (< OR = 4.0)
[2022-06-15 21:57] LABS: Hemoglobin A1C 5.6 % (<5.7)
== END 2022-06-15 12:42 | disposition home or self-care (01) ==
LOC: ANHGOSHLAB 12:44
PROVIDERS: Visit Provider Family Medicine
DX: E11.9 Type 2 diabetes mellitus without complications (principal); M10.9 Gout, unspecified; R97.20 Elevated prostate specific antigen [PSA]; Z12.5 Encounter for screening for malignant neoplasm of prostate
CPT/HCPCS: 36415; 80053; 80061; 82043; 83036; 84153; 84550; G0103

== ENCOUNTER 2022-10-22 13:09 | Emergency (ER) | payer MEDICARE, SELFPAY ==
--- NOTE | 2022-10-22 13:15 | ED.GENADULT ---
HPI - General Adult General Chief complaint: Urogenital-Male Stated complaint: UTI Source: patient and RN notes reviewed History of Present Illness HPI narrative: 72 yo M presents to urgent care with complaints of dysuria. Pt reports urinary frequency, foul odor, and intermittent burning with urination starting this past week. Pt is also reporting anxiety. States he had a biopsy of his prostate 8 days and he called the MD's office yesterday afternoon for results and they told him it was + for cancer. Pt states he has been anxious ever since and was dry heaving this morning b/c of it. Pt states he read online his options and he doesn't know what to do. Pt states he sees the urologist on this upcoming week. Pt denies any fevers, chills, abdominal pain, back pain, vomiting, diarrhea, chest pain, or SOB. Related Data Allergies Allergy/AdvReac Type Severity Reaction Status Date / Time Quinolones Allergy Severe Difficulty Verified 10/22/22 13:12 Breathing allopurinol Allergy Intermediate Swelling Verified 10/22/22 13:12 levofloxacin [From Levaquin] Allergy Intermediate Swelling Verified 10/22/22 13:12 Penicillins Allergy Intermediate NAUSEA & Verified 10/22/22 13:12 RASH Review of Systems Review of Systems: CONSTITUTIONAL: Denies fever, chills, or sweats. EYES: Denies visual changes, redness, or discharge. ENT: Denies otalgia and sore throat CARDIOVASCULAR: Denies chest pain, palpitations, or edema. RESPIRATORY: Denies cough or dyspnea. GASTROINTESTINAL: Denies abdominal pain, nausea, vomiting, or diarrhea. GENITOURINARY:urinary frequency and foul odor and burning with urination SKIN: Denies rash or itching. MUSCULOSKELETAL: Denies back pain, joint pain, or myalgia. NEUROLOGIC: Denies headache, numbness, or weakness. Pertinent positives per HPI. [facility] Past Medical History Medical History Acute emphysematous cholecystitis Chronic GERD Diverticulosis Essential hypertension Gout Prediabetes Sinusitis Surgical History Surgical History Hx laparoscopic cholecystectomy 09/30/20 Social History Social History (Updated 10/20/22 @ 09:58 by REBEKAH Jones Smoking packs per day: 1 Smoking cigarettes per day: 20.0 Years smoked: 2 Smoking pack-years: 2.00 Smoking status: Former smoker Tobacco type: pipe Second hand tobacco smoke exposure: Yes Smoking end date: 02/15/88 Alcohol intake: current Drinks per week: 3 Substance use: never Substance use type: does not use Lack of Transportation: No Lack of Food: Sometimes True Current Housing: I Have Housing Concerned About Future Housing: No Difficulty Paying Gas/Electric Bills: No Difficulty Paying for Meds: No Currently Unemployed: No Education: Bachelor's Degree Difficulty w/ Childcare or Family Care: No Spiritual care concerns: No Comments At the time of my signature, I reviewed and agree with the nursing past medical, surgical, social, and family history. There is no relevant family history pertinent to the patient complaint. Exam Narrative: GENERAL: This is a well-nourished, well-developed patient, in no apparent distress. HEAD: normocephalic, atraumatic. EYES: Sclera clear/white. Vision is grossly intact. EARS: External ears normal, auditory canals clear and without drainage, TMs normal without perforation. Hearing grossly intact. NOSE: External nose normal with no obvious nasal discharge, nares without redness, no rhinorrhea. THROAT: Mucous membranes moist, posterior pharynx clear. NECK: Neck supple, non-tender without lymphadenopathy, masses or thyromegaly. CARDIOVASCULAR: Regular rate and rhythm without murmurs, gallops, or rubs. RESPIRATORY: Clear to auscultation. Breath sounds equal bilaterally. No wheezes, rales, or rhonchi. GASTROINTESTINAL: Abdomen soft, non-tender, nondistended.
[2022-10-22 13:21] VITALS: BP 142/100; PULSE 106; RESP 18; TEMP 37.2; O2SAT 97
== END 2022-10-22 13:50 | disposition home or self-care (01) ==
PROVIDERS: Emergency Provider Nurse Practitioner Family; PCP Family Medicine
DX: N39.0 Urinary tract infection, site not specified (principal); Z87.891 Personal history of nicotine dependence; K21.9 Gastro-esophageal reflux disease without esophagitis; I10 Essential (primary) hypertension; M10.9 Gout, unspecified; R73.03 Prediabetes
CPT/HCPCS: 81003; 87077; 87086; 87186; 99213; G0463

== ENCOUNTER 2022-11-09 13:25 | Outpatient (CLI) | payer MEDICARE, SELFPAY ==
--- NOTE | ~2022-11-09 | PE_ITS ---
EXAMINATION: PET_PETPSMAST_PT DATE: 11/09/2022 16:02 INDICATION: Prostate cancer TECHNIQUE: 8.645 mCi of pipflufolastat F-18 (18-F-DCFPyL) was administered i.v. Low dose computed to mography (CT) images were acquired from the base of the brain to the base of the brain to the proxima l thighs for attenuation correction and anatomic localization. Positron emission tomography (PET) garry ges were acquired in the same distribution beginning 96 minutes after injection. Images including fus ed PET/CT images were reconstructed in axial, coronal, and sagittal planes. Automated exposure contro l technique was employed. The dose-length product was 542.55mGy-cm. COMPARISON: None FINDINGS: Head/neck: Typical pattern of symmetric physiologic increased activity in the lacrimal, parotid and submandibula r glands as well as along the mucosa of the nasal and oral cavities, the amy-, naso- and hypopharynx, the glottis and esophagus. No pathologically enlarged cervical lymphadenopathy or suspicious foci of increased uptake in the visualized head or neck. Chest: Mild dependent atelectasis in the bilateral lower lobes. No suspicious pulmonary nodules, pulmonary e corinne, pneumonia or other pulmonary infiltrates. No pleural effusion. Heart size is normal. Atheroscle rotic coronary artery calcific lesion. No pericardial effusion. Thoracic aorta is normal in caliber. No pathologically enlarged or PSMA avid thoracic lymphadenopathy. Abdomen/pelvis/proximal thighs: Physiologic renal accumulation and excretion of activity in the kidneys, bladder and along portions o f ureters. Normal degree and slightly heterogenous pattern of increased uptake throughout the liver a nd spleen without radiologic correlate or dominant PSMA avid lesion. Heterogeneous pattern of hepatic steatosis with geographic regions of decreased density most prominent in the right hepatic lobe. Cho lecystectomy clips at the gallbladder fossa. The pancreas and bilateral adrenal glands are normal. M oderate uptake scattered throughout the bowels with typical duodenal and proximal jejunal predominanc e and without radiologic correlate, also likely physiologic. There are 4 small foci of increased PSMA uptake without radiologic correlate scattered throughout the prostate which are suspicious for prostate cancer. One located near the midline measures approximate ly 1 cm in diameter with maximal SUV of 17.7 which could potentially be related to activity in the pr ostatic urethra. There are 2 on the left side of the prostate the larger and more caudal also measuri ng approximately 1 cm with maximal SUV of 24.6. A tiny anterior and cephalad focus with maximal SUV o f 7.7 and 8 tiny focus at the right posterior inferior prostate with maximal SUV of 6.3. No other abn ormal foci of increased uptake or pathologically enlarged lymphadenopathy in the abdomen, pelvis or p roximal thighs. Musculoskeletal: Severe lower cervical and lower lumbar spondylosis with moderate intervening thoracolumbar spondylosi s. There are no suspicious lytic, blastic or PSMA avid bone lesions identified. IMPRESSION: 1. A few foci of increased uptake scattered throughout the prostate consistent with primary prostate cancer. No evident metastatic disease. Reviewed, dictated and finalized at location A.
== END 2022-11-09 13:26 | disposition home or self-care (01) ==
PROVIDERS: PCP Family Medicine; Visit Provider Urology
DX: C61 Malignant neoplasm of prostate (principal)
CPT/HCPCS: 78815; A9595

== ENCOUNTER 2022-12-21 15:07 | Emergency (ER) | payer MEDICARE, SELFPAY ==
--- NOTE | ~2022-12-21 | XR_ITS ---
EXAMINATION: XR chest 2V DATE: 12/21/2022 15:56 INDICATION: Bilateral upper anterior rib pain. TECHNIQUE: Frontal and lateral views of the chest were obtained. COMPARISON: Chest 2 views 01/26/2022, PET CT 11/09/2022 FINDINGS: There is mild atelectasis at left lung base. No pleural effusion or pneumothorax. The heart size is normal. Surgical clips in the right upper quadrant are likely from cholecystectomy. IMPRESSION: 1. Mild atelectasis at left lung base. Reviewed, dictated and finalized at location A. 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
[2022-12-21 15:16] VITALS: BP 121/84; PULSE 98; RESP 14; TEMP 36.9; O2SAT 100
--- NOTE | 2022-12-21 15:51 | ED.GENADULT ---
HPI - General Adult General Chief complaint: Unspecified Stated complaint: Sore Ribs Time Seen by Provider: 12/21/22 15:43 Source: patient and RN notes reviewed Mode of arrival: ambulatory Limitations: no limitations History of Present Illness HPI narrative: Patient presents today complaining of bilateral anterior lower rib pain since yesterday. States he may have pulled a muscle while moving a very large box in his driveway and working in his yard, but is also concerned that he may have pneumonia. Patient was recently diagnosed with prostate cancer and is very anxious regarding this diagnosis. Denies shortness of breath, recent illness, cough, fever. Currently rates his pain 6/10, which increases with movement. Related Data Home Medications Medication Instructions Recorded Confirmed relugolix 120 mg tablet (Orgovyx) See Rx Instructions .Route .COMPLEX 12/21/22 12/21/22 Allergies Allergy/AdvReac Type Severity Reaction Status Date / Time Quinolones Allergy Severe Difficulty Verified 12/21/22 15:12 Breathing allopurinol Allergy Intermediate Swelling Verified 12/21/22 15:12 levofloxacin [From Levaquin] Allergy Intermediate Swelling Verified 12/21/22 15:12 Penicillins Allergy Intermediate NAUSEA & Verified 12/21/22 15:12 RASH Review of Systems Review of Systems: CONSTITUTIONAL: Denies body aches, fever, chills, or sweats. EYES: Denies visual changes, redness, or discharge. ENT: Denies rhinorrhea, congestion, sore throat, or otalgia. CARDIOVASCULAR: Denies chest pain, palpitations, or edema. RESPIRATORY: Denies cough or dyspnea. GASTROINTESTINAL: Denies abdominal pain, nausea, vomiting, or diarrhea. GENITOURINARY: Denies dysuria or hematuria. SKIN: Denies rash, itching, or wounds. MUSCULOSKELETAL: + rib pain NEUROLOGIC: Denies headache, numbness, tingling, or weakness. PSYCH: Denies depression or anxiety. [facility] Past Medical History Medical History Acute emphysematous cholecystitis Chronic GERD Diverticulosis Essential hypertension Gout Prediabetes Sinusitis Surgical History Surgical History Hx laparoscopic cholecystectomy 09/30/20 Social History Social History Smoking packs per day: 1 Smoking cigarettes per day: 20.0 Years smoked: 2 Smoking pack-years: 2.00 Smoking status: Former smoker Tobacco type: pipe Second hand tobacco smoke exposure: Yes Smoking end date: 02/15/88 Alcohol intake: current Drinks per week: 3 Substance use: never Substance use type: does not use Lack of Transportation: No Lack of Food: Sometimes True Current Housing: I Have Housing Concerned About Future Housing: No Difficulty Paying Gas/Electric Bills: No Difficulty Paying for Meds: No Currently Unemployed: No Education: Bachelor's Degree Difficulty w/ Childcare or Family Care: No Spiritual care concerns: No Comments At time of signature, I have reviewed and agree with nursing past medical, surgical, social and family history unless otherwise noted. Please see nursing chart for further information. There is no relevant family history pertinent to the presenting complaint Exam Narrative: GENERAL: Well-appearing, well-nourished, and in no acute distress. HEAD: Normocephalic, atraumatic. EYES: EOMI. No redness or drainage. Conjunctivae normal. ENT: Mucous membranes pink and moist. Nares clear. No rhinorrhea. TMs normal bilaterally. Throat normal. Uvula midline. NECK: Normal AROM. Supple. No lymphadenopathy. CHEST: No respiratory distress. Clear to auscultation. Patient has point tenderness to the left anterior lower ribs. HEART: Regular rate and rhythm. No murmur appreciated. Normal peripheral pulses. ABDOMEN: Soft, nontender, nondistended, normal active bowel sounds. EXTREMITIES: N
== END 2022-12-21 16:23 | disposition home or self-care (01) ==
PROVIDERS: Emergency Provider Nurse Practitioner; PCP Family Medicine
DX: S29.011A Strain of muscle and tendon of front wall of thorax, initial encounter (principal); I10 Essential (primary) hypertension; Z87.891 Personal history of nicotine dependence; X50.0XXA Overexertion from strenuous movement or load, initial encounter; Y92.008 Other place in unspecified non-institutional (private) residence as the place of occurrence of the external cause
CPT/HCPCS: 71046; 99213; G0463

== ENCOUNTER 2023-03-10 12:29 | Outpatient (CLI) | payer MEDICARE, SELFPAY ==
[2023-03-10 19:02] LABS: Basophils Absolute Auto 0.1 K/mm3 (0.0-0.1); Basophils Percent Auto 0.9 % (0.2-1.2); Eosinophils Absolute Auto 0.3 K/mm3 (0-0.3); Eosinophils Percent Auto 4.7 % (0-4.4); Hemoglobin 14.9 g/dL (14.0-18.0); Immature Granulocyte Absolute 0.02 K/mm3 (0.00-0.031); Immature Granulocyte Percent A 0.4 % (0-0.5); Lymphocytes Absolute Auto 1.07 K/mm3 (0.9-3.2); Lymphocytes Percent Auto 20.3 % (18.3-44.2); Mean Corpuscular HGB Conc 33.1 g/dl (32-36); Mean Corpuscular Hemoglobin 31.4 pg (26-34); Mean Corpuscular Volume 94.7 fl (80-100); Mean Platelet Volume 10.4 fl (7.4-10.4); Monocytes Absolute Auto 0.5 K/mm3 (0.1-0.6); Monocytes Percent Auto 10.1 % (2.6-8.5); Neutrophils Absolute Auto 3.4 K/mm3 (1.3-6.7); Neutrophils Percent Auto 63.6 % (45.5-73.1); Platelet Count Result 230 k/mm3 (150-375); Red Blood Count 4.75 M/mm3 (4.6-6.20); Red Cell Distribution Width 12.9 % (11.5-14.5); White Blood Count 5.3 K/mm3 (4.5-10.0)
[2023-03-10 19:37] LABS: Vitamin D 25 Hydroxy 31.4 ng/mL
[2023-03-10 19:46] LABS: Anion Gap 6 mmol/L (8-16); Blood Urea Nitrogen 19 mg/dL (9-20); Calcium 9.8 mg/dL (8.4-10.2); Carbon Dioxide 26 mmol/L (22-30); Chloride 107 mmol/L (98-107); Estimated Glomerular Filt Rate > 60; Glucose 123 mg/dL (65-110); Potassium 4.4 mmol/L (3.4-5.0); Sodium 139 mmol/L (137-145)
[2023-03-13 10:27] LABS: Hemoglobin A1C 5.9 % (<5.7)
== END 2023-03-10 12:30 | disposition home or self-care (01) ==
PROVIDERS: PCP Family Medicine; Visit Provider Nurse Practitioner Family
DX: R53.83 Other fatigue (principal); C61 Malignant neoplasm of prostate; I10 Essential (primary) hypertension; E11.9 Type 2 diabetes mellitus without complications; E55.9 Vitamin D deficiency, unspecified
CPT/HCPCS: 36415; 80048; 82306; 83036; 84443; 85025

== ENCOUNTER 2023-04-29 13:55 | Emergency (ER) | payer MEDICARE, SELFPAY ==
[2023-04-29 14:15] VITALS: BP 115/89; PULSE 109; RESP 16; TEMP 37.2; O2SAT 99
--- NOTE | 2023-04-29 14:18 | ED.MALEGU ---
HPI - Male Genitourinary General Chief complaint: Urogenital-Male Stated complaint: urinary issue Time Seen by Provider: 04/29/23 14:18 Source: patient and RN notes reviewed Mode of arrival: ambulatory Limitations: no limitations History of Present Illness HPI Narrative: 72-year-old male presented for complaint of urinary symptoms. He endorses at this started a week he noted cloudy foul-smelling urine, then developed burning with urination and noted blood in the urine today. denies nausea, vomiting, abdominal pain, flank pain, constipation, diarrhea, fevers or chills. Hx prostate cancer, follows with urology. Related Data Home Medications Medication Instructions Recorded Confirmed relugolix 120 mg tablet (Orgovyx) See Rx Instructions .Route .COMPLEX 12/21/22 04/29/23 Allergies Allergy/AdvReac Type Severity Reaction Status Date / Time Quinolones Allergy Severe Difficulty Verified 04/29/23 13:59 Breathing allopurinol Allergy Intermediate Swelling Verified 04/29/23 13:59 levofloxacin [From Levaquin] Allergy Intermediate Swelling Verified 04/29/23 13:59 Penicillins Allergy Intermediate NAUSEA & Verified 04/29/23 13:59 RASH Review of Systems Review of Systems: CONSTITUTIONAL: Denies body aches, fever, chills, or sweats. CARDIOVASCULAR: Denies chest pain, palpitations, or edema. RESPIRATORY: Denies cough or dyspnea. GASTROINTESTINAL: Denies abdominal pain, nausea, vomiting, or diarrhea. GENITOURINARY: Reports dysuria, hematuria, denies frequency, urgency, flank pain SKIN: Denies rash, itching, or wounds. MUSCULOSKELETAL: Denies back pain or myalgia. [facility] Past Medical History Medical History Acute emphysematous cholecystitis Chronic GERD Diverticulosis Essential hypertension Gout Prediabetes Prostate cancer Treated with beam radiation 45 treatments Sinusitis Surgical History Surgical History Hx laparoscopic cholecystectomy 09/30/20 Social History Social History Smoking packs per day: 1 Smoking cigarettes per day: 20.0 Years smoked: 2 Smoking pack-years: 2.00 Smoking status: Former smoker Tobacco type: pipe Second hand tobacco smoke exposure: Yes Smoking end date: 02/15/88 Alcohol intake: current Drinks per week: 3 Substance use: never Substance use type: does not use Lack of Transportation: No Lack of Food: Sometimes True Current Housing: I Have Housing Concerned About Future Housing: No Difficulty Paying Gas/Electric Bills: No Difficulty Paying for Meds: No Currently Unemployed: No Education: Bachelor's Degree Difficulty w/ Childcare or Family Care: No Spiritual care concerns: No Comments At time of signature, I have reviewed and agree with nursing past medical, surgical, social and family history unless otherwise noted. Please see nursing chart for further information. There is no relevant family history pertinent to the presenting complaint Exam Narrative: GENERAL: Well-appearing ENT: Mucous membranes pink and moist. CHEST: No respiratory distress. Clear to auscultation. HEART: Regular rate and rhythm. ABDOMEN: Soft, nontender, nondistended, normal active bowel sounds. No CVA tenderness SKIN: Warm, dry, no rash. NEURO: No focal deficits. Alert and oriented x3. Gait steady. PSYCH: Normal affect. Course Course Emergency Course: Patient is aware of diagnosis, understands and agrees to treatment plan. Anticipatory guidance given. Patient agrees to follow-up as directed and is aware of reasons to seek care at the emergency department. Portions of this record may have been created with voice recognition software Level of Care: Express Care Visit Vital Signs Vital signs: Vital Signs Temperature 98.9 F 04/29/23 14:15 Pulse Rate 109 H 04/29/23
== END 2023-04-29 14:38 | disposition home or self-care (01) ==
PROVIDERS: Emergency Provider Nurse Practitioner Family; PCP Family Medicine
DX: N39.0 Urinary tract infection, site not specified (principal); B96.1 Klebsiella pneumoniae [K. pneumoniae] as the cause of diseases classified elsewhere; K21.9 Gastro-esophageal reflux disease without esophagitis; I10 Essential (primary) hypertension; M10.9 Gout, unspecified; R73.03 Prediabetes; Z85.46 Personal history of malignant neoplasm of prostate; Z87.891 Personal history of nicotine dependence
CPT/HCPCS: 81003; 87077; 87086; 87088; 87186; 99213; G0463

== ENCOUNTER 2023-11-28 08:48 | Outpatient (CLI) | payer MEDICARE, SELFPAY ==
--- NOTE | ~2023-11-28 | US_ITS ---
EXAMINATION: US renal BI DATE: 11/28/2023 09:04 INDICATION: Nephrolithiasis TECHNIQUE: Multiple ultrasound grayscale images of the kidneys were obtained. COMPARISON: None. FINDINGS: The right kidney measures 9.5 x 4.3 x 4.8 cm. The left kidney measures 9.7 x 4.1 x 5.3 cm. The kidney s demonstrate normal echogenicity. 9 mm echogenic shadowing stone in the right kidney. There is no hy dronephrosis in either kidney. The bladder is normal. IMPRESSION: 1. 9 mm nonobstructing right renal stone. Otherwise normal kidneys with no hydronephrosis. Reviewed, dictated and finalized at location A. IMPRESSION: 1. 9 mm nonobstructing right renal stone. Otherwise normal kidneys with no hyd ronephrosis.
== END 2023-11-28 08:49 | disposition home or self-care (01) ==
LOC: GOSHIMG 08:49
PROVIDERS: PCP Family Medicine; Visit Provider Family Medicine
DX: C61 Malignant neoplasm of prostate (principal); N19 Unspecified kidney failure; N20.0 Calculus of kidney; T88.8XXA Other specified complications of surgical and medical care, not elsewhere classified, initial encounter
CPT/HCPCS: 76775

== ENCOUNTER 2024-02-15 09:45 | Outpatient (CLI) | payer MEDICARE, SELFPAY ==
[2024-02-15 20:44] LABS: Anion Gap 8 mmol/L (4-12); Blood Urea Nitrogen 21 mg/dL (9-20); Calcium 8.9 mg/dL (8.4-10.2); Carbon Dioxide 26 mmol/L (22-30); Chloride 105 mmol/L (98-107); Estimated Glomerular Filt Rate 47; Glucose 136 mg/dL (65-110); Potassium 4.3 mmol/L (3.4-5.0); Sodium 139 mmol/L (137-145)
[2024-02-15 22:23] LABS: Hemoglobin A1C 5.8 % (<5.7)
== END 2024-02-15 09:46 | disposition home or self-care (01) ==
PROVIDERS: PCP Family Medicine; Visit Provider Family Medicine
DX: R73.01 Impaired fasting glucose (principal); T88.8XXA Other specified complications of surgical and medical care, not elsewhere classified, initial encounter; X58.XXXA Exposure to other specified factors, initial encounter; N19 Unspecified kidney failure
CPT/HCPCS: 36415; 80048; 83036

== ENCOUNTER 2024-06-22 14:37 | Emergency (ER) | payer MEDICARE, SELFPAY ==
[2024-06-22 15:02] VITALS: BP 131/87; PULSE 98; RESP 18; TEMP 36.5; O2SAT 94
--- NOTE | 2024-06-22 15:21 | ED_ITS ---
HPI - Back Pain/Injury General Chief Complaint: Back Pain/Injury Stated Complaint: UTI Time Seen by Provider: 06/22/24 15:18 Source: patient, RN notes reviewed and old records reviewed Mode of arrival: ambulatory Limitations: no limitations History of Present Illness HPI Narrative: 73 year old male presents to [facility] care with complaints of 3-4 days of left flank/low back pain which is worse in the morning. Patient reports no burning with urination or any cloudy urine denies any urgency. Patient reports that frequency of urination is chronic he states that he has had kidney stone in the past and he thinks there is still one in there somewhere. Patient states that he mowed his yard yesterday and pain was better Patient reports no respiratory problems states has a lot of problems with his sinuses and takes daily Zyrtec and Flonase nasal spray.. MD elicited complaint: back pain Pertinent past history: kidney stones and other (prostate pain) Onset (ago): day(s) (3-4) Pain scale (0-10): 2 Quality: aching and other (soreness) Work related injury: No Related Data Home Medications Medication Instructions Recorded Confirmed Last Taken Type relugolix 120 mg tablet (Orgovyx) See Rx Instructions .Route .COMPLEX 12/21/22 05/30/24 Unknown History Allergies Allergy/AdvReac Type Severity Reaction Status Date / Time Quinolones Allergy Severe Difficulty Verified 06/22/24 14:57 Breathing allopurinol Allergy Intermediate Swelling Verified 06/22/24 14:57 levofloxacin (From Levaquin) Allergy Intermediate Swelling Verified 06/22/24 14:57 Penicillins Allergy Intermediate NAUSEA & Verified 06/22/24 14:57 RASH Sulfa (Sulfonamide AdvReac Mild Childhood Verified 06/22/24 14:57 Antibiotics) Allergy Review of Systems Review of Systems: CONSTITUTIONAL: Denies fever, chills, or sweats. EYES: Denies visual changes, redness, or discharge. ENT: Reports chronic rhinorrhea,intermittent congestion,no sore throat, no otalgia. CARDIOVASCULAR: Denies chest pain, palpitations, or edema. RESPIRATORY: Denies cough or dyspnea. GASTROINTESTINAL: Denies abdominal pain, nausea, vomiting, or diarrhea. GENITOURINARY: Denies dysuria or hematuria. SKIN: Denies rash or itching. MUSCULOSKELETAL: reports mid lower back pain some left flank area, joint pain, or myalgia. NEUROLOGIC: Denies headache, numbness, or weakness. PSYCHIATRIC: Denies anxiety or depression. All systems reviewed & are unremarkable except as noted in HPI and below PMFSH Past Medical History Medical History Prostate cancer Treated with beam radiation 45 treatments Diverticulosis Sinusitis Acute emphysematous cholecystitis Chronic GERD Prediabetes Gout Essential hypertension Surgical History Surgical History Hx laparoscopic cholecystectomy 09/30/20 Social History Social History Smoking packs per day: 1 Smoking cigarettes per day: 20.0 Years smoked: 2 Smoking pack-years: 2.00 Smoking status: Former smoker Tobacco type: pipe Second hand tobacco smoke exposure: Yes Smoking end date: 02/15/88 Alcohol intake: current Drinks per week: 3 Substance use: never Substance use type: does not use Lack of Transportation: No Lack of Food: Sometimes True Current Housing: I Have Housing Concerned About Future Housing: No Difficulty Paying Gas/Electric Bills: No Difficulty Paying for Meds: No Currently Unemployed: No Education: Bachelor's Degree Difficulty w/ Childcare or Family Care: No Spiritual care concerns: No Comments At time of signature, agree with nursing past medical, surgical, social and family history. There is no relevant family history pertinent to the presenting complaint Exam Narrative: GENERAL: Well-appearing, well-nourished, and in no acute distress. HEAD: Normocephalic, atraumatic. EYES: PERRLA and EOMI. ENT: Nares clear,clear rhinorrhea no epistaxis. Mucous membranes moist.TM's normal throat pink with some post nasal drainage. NECK: Supple.no lymphadenopathy CHEST: Clear to auscultation. No respiratory distress. SAO2 94% HEART: Regular rate and rhythm. No murmur heard. Normal peripheral pulses. ABDOMEN: Soft, nontender, nondistended, normal active bowel sounds. no nausea,vomiting or diarrhea EXTREMITIES: Normal range of motion. No edema. pain to lower back mid area and to left side with tenderness at SI joint area tender on palpation.. SKIN: Warm, dry, no rash. NEURO: No focal deficits. Alert and oriented x3. Course Course Emergency Course: Patient is aware of diagnosis, understands and agrees to treatment plan. Anticipatory guidance given. Patient agrees to follow-up as directed and is aware of reasons to seek care at the emergency department. Portions of this record may have been created with voice recognition software Level of Care: Express Care Visit Vital Signs Vital signs: Vital Signs Temperature 36.5 C 06/22/24 15:02 Pulse Rate 98 06/22/24 15:02 Respiratory Rate 18 06/22/24 15:02 Blood Pressure 131/87 06/22/24 15:02 Pulse Oximetry 94 06/22/24 15:02 Oxygen Delivery Room Air 06/22/24 15:02 Temperature 36.5 C 06/22/24 15:02 Pulse Rate 98 06/22/24 15:02 Respiratory Rate 18 06/22/24 15:02 Blood Pressure 131/87 06/22/24 15:02 Pulse Oximetry 94 06/22/24 15:02 Oxygen Delivery Room Air 06/22/24 15:02 Reviewed MDM - Back Pain/Injury Differential Diagnosis Differential diagnosis: Likely lumbar radiculopathy, strain of lumbar region and other (left flank pain. lower back pain) Medical Records Attestation: I reviewed the patient's medical records. Lab Data Attestation: I reviewed the patient's lab results. Lab results narrative: Urine dip glucose negative, bilirubin negative, ketone negative, specific gravity greater than or equal to 1.030, blood negative, pH 5.5, protein negative, urobilinogen 0.2 nitrate negative leukocyte negative Labs: Lab Results 06/22/24 Range/Units 15:51 POC Urine Color Yellow POC Urine Clarity Clear POC Urine pH 5.5 POC Ur Specif [place] 1.030 POC Urine Protein Negative (Negative) POC Ur Glucose (UA) Negative (Negative) POC Urine Ketones Negative (Negative) POC Urine Blood Negative (Negative) POC Urine Nitrite Negative (Negative) POC Urine Bilirubin Negative (Negative) POC Urine Urobilinogen 0.2 POC U Leukocyte Esteras Negative (Negative) Critical Care Time Critical Care Time Critical Care Time: No Discharge Plan Discharge Clinical Impression: Lower back pain Qualifiers: Chronicity: acute Back pain laterality: midline Sciatica presence: without sciatica Qualified Code(s): M54.50 - Low back pain, unspecified Patient Disposition: Home Condition: Stable Instructions: Back Pain (ED) Additional Instructions: Ice and heat to the area for 20-30 minutes Gentle stretching exercises Gentle massage Caution with lifting, bending, stooping, twisting Avoid pushing, pulling take muscle relaxants as directed--caution drowsiness and no driving or alcohol Anti-inflammatory medicine as directed--take with food He may take the muscle relaxant and anti-inflammatory at the same time Follow-up with your PCP if not improving in 5-7 days Cyclobenzaprine at bedtime 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 Follow-up with PCP in 7-10 days or sooner if needed Follow up with PCP soon in regards to your blood pressure which is elevated above threshold for referral. Blood pressure above 120/80 may indicate pre- hypertension. 131/87 Patient Language: Vincentian Prescriptions: New cyclobenzaprine 5 mg tablet 5 mg PO HS Qty: 14 0RF Rx Instructions: take only at bedtime do not drive while taking and no alcohol No Action Orgovyx 120 mg tablet See Rx Instructions .ROUTE .COMPLEX Rx Instructions: Rx triamcinolone acetonide 0.1 % cream 1 applic topical QID Qty: 80 0RF tamsulosin 0.4 mg capsule 0.8 mg PO DAILY Qty: 180 3RF lisinopril 20 mg tablet See Rx Instructions .ROUTE .COMPLEX Qty: 90 3RF Dose Instruction: TAKE 1 TABLET BY MOUTH DAILY Rx Instructions: TAKE 1 TABLET BY MOUTH DAILY fluticasone propionate 50 mcg/actuation spray,suspension 2 spray INTRANASAL DAILY Qty: 16 5RF Rx Instructions: 2 sprays each nostril methenamine hippurate 1 gram tablet 1 g PO BID Qty: 180 3RF Myrbetriq 25 mg tablet extended release 24 hr 25 mg PO DAILY Qty: 30 0RF trazodone 150 mg tablet 150 mg PO DAILY Qty: 90 3RF famotidine 40 mg tablet 40 mg PO BID Qty: 180 1RF Follow-up/Referrals: Raffy Barajas MD [Primary Care Provider] - Time of Disposition: 15:37 Quality [place] Coma Scale Eyes: Open Verbal: Oriented and Alert Motor: Follows Commands [place] Coma Total Score: 15
[2024-06-22 15:52] LABS: EDUAAPPEAR Clear; EDUABILI Negative (Negative); EDUABLOOD Negative (Negative); EDUACOLOR1 Yellow; EDUAGLUCOSE Negative (Negative); EDUAKETONE Negative (Negative); EDUALEUKO Negative (Negative); EDUANITRATE Negative (Negative); EDUAPH 5.5; EDUAPROTEIN Negative (Negative); EDUAUROBILI 0.2
== END 2024-06-22 15:53 | disposition home or self-care (01) ==
PROVIDERS: Emergency Provider Registered Nurse; PCP Family Medicine
DX: M54.50 Low back pain, unspecified (principal); Z87.891 Personal history of nicotine dependence; K21.9 Gastro-esophageal reflux disease without esophagitis; I10 Essential (primary) hypertension; R73.03 Prediabetes; Z85.46 Personal history of malignant neoplasm of prostate; Z92.3 Personal history of irradiation
CPT/HCPCS: 81003; 99213; G0463

== ENCOUNTER 2024-08-27 10:10 | Outpatient (CLI) | payer MEDICARE, SELFPAY ==
--- OUTSIDE RECORDS SUMMARY | 2024-08-27 10:13 | XMS_ITS | Continuity of Care Document ---
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 [address] [place], [address], [place]. tel: [phone] Family History Family Member Type Diagnosis Age At Onset No Information Payers Payer name Insurance type Covered constitution party ID Authoriza tion(s) No Information Social History Type Description Quantity Date Captured Comments Sex Male Smoking Status No Information Chief Complaint And Reason For Visit No Information Reason For Referral Reason For Referral No Information History Of Present Illness Encounter Date Complaint History Of Prese nt Illness No Information Functional Status Date Functional Assessmen t No Information Instructions Date Instruction Additional Infor mation No Information Assessments Type Assessment Date No Information Patient Care Teams Name Effective Dates (start - stop) Status Members No Information
[2024-08-27 19:24] LABS: Anion Gap 10 mmol/L (4-12); Blood Urea Nitrogen 24 mg/dL (9-20); Calcium 9.4 mg/dL (8.4-10.2); Carbon Dioxide 21 mmol/L (22-30); Chloride 106 mmol/L (98-107); Estimated Glomerular Filt Rate 52; Glucose 128 mg/dL (65-110); Potassium 4.1 mmol/L (3.4-5.0); Sodium 137 mmol/L (137-145)
[2024-08-27 20:46] LABS: Hemoglobin A1C 6.0 % (<5.7)
== END 2024-08-27 10:11 | disposition home or self-care (01) ==
LOC: ANHGOSHLAB 10:11
PROVIDERS: PCP Family Medicine; Visit Provider Family Medicine
DX: T88.8XXA Other specified complications of surgical and medical care, not elsewhere classified, initial encounter (principal); N19 Unspecified kidney failure; R73.01 Impaired fasting glucose
CPT/HCPCS: 36415; 80048; 83036